=== PATIENT | male | born 1945 | race Caucasian/White ===

== ENCOUNTER 2023-04-07 20:57 | Inpatient (IN) | payer MEDICARE ==
[~2023-04-07 20:57] MED LIST: Iopamidol-370 76% 500 ML MDV (1 ML CHARGE) ONE
[2023-04-07] MEDS ORDERED: Dexamethasone 10 MG/ML VIAL ONE (23:32)
[2023-04-07] MEDS ORDERED: Ondansetron PF 4 MG/2 ML Vial ONE (23:32)
[2023-04-07] MEDS ORDERED: Morphine 4 MG/ML VIAL ONE (23:32)
[2023-04-07 23:52] LABS: #Eosinphils 0.2 thou/uL (0.0-0.7); #Monocytes 0.8 thou/uL (0.11-0.59); #Neutrophils 3.7 thou/uL (1.40-6.50); %Basophils 0.5 % (0.0-1.0); %Eosinophils 3.1 % (0.0-10.0); %Lymphocytes 26.6 % (21.0-51.0); %Monocytes 11.9 % (0.0-10.0); %Neutrophils 57.7 % (42.0-75.0); Hematocrit 33.9 % (42.0-52.0); Hemoglobin 12.4 g/dL (14.0-18.0); Mean Corpuscular HGB CONC 36.6 g/dL (32.0-36.0); Mean Corpuscular Volume 90.2 fl (78.0-98.0); Mean Platelet Volume 9.4 fL (7.4-10.4); Platelet Count 250 10x3/uL (130-400); RBC Distribution Width 12.9 % (11.5-14.5); Red Blood Cell (RBC) Count 3.76 mill/uL (4.70-6.10); White Blood Cell (WBC) Count 6.4 10x3/uL (4.8-10.8)
[2023-04-08] MEDS ORDERED: LORazepam 2 MG/ML SYR.(CARPUJECT) ONE (00:29)
[2023-04-08] MEDS ORDERED: fentaNYL 50 mcg/mL 1 mL Vial ONE (00:29)
[2023-04-08 00:37] LABS: ALT (SGPT) 16 U/L (8-55); AST (SGOT) 29 U/L (5-34); Albumin 3.9 g/dL (3.4-4.8); Alkaline Phosphatase 50 U/L (40-110); Anion Gap 16 mmol/L (10-20); BUN (Urea Nitrogen) 16 mg/dL (8.4-25.7); Bilirubin, Total 0.7 mg/dL (0.2-1.2); Calc. Creatinine Clearance 0 mL/min (70-130); Calcium 9.4 mg/dL (7.8-10.44); Carbon Dioxide 24 mmol/L (23-31); Chloride 91 mmol/L (98-107); Estimated GFR 85; Globulin 2.6 g/dL (2.4-3.5); Glucose 117 mg/dL (83-110); Lipase 9 U/L (8-78); Potassium 3.5 mmol/L (3.5-5.1); Protein, Total 6.5 g/dL (5.8-8.1); Sodium 127 mmol/L (136-145)
[2023-04-08 00:53] LABS: Bacteria/HPF 1+ HPF (None Seen); Bilirubin Negative (Negative); Blood, Urine Negative (Negative); CAUTI Indications for Culture Dysuria,urgency,freq; Clarity Clear (Clear); Glucose, Urine (Dipstick) Normal (Negative); Ketone, Urine Negative (Negative); Leukocyte Negative Leu/uL (Negative); Nitrite Negative (Negative); Protein, Urine (Dipstick) Negative (Neg-Trace); RBC/HPF 0-3 HPF (0-3); Squamous Epithelial None Seen HPF (0-3); Urine Culture Reflex No No; Urobilinogen Normal mg/dL (Less than 2); WBC/HPF 0-3 HPF (0-3)
[2023-04-08 04:50] VITALS: BMI 23.6
[2023-04-08] MEDS ORDERED: Morphine 4 MG/ML VIAL SLOW IVP PRN ×2 (04:53→08:36)
[2023-04-08] MEDS ORDERED: Ondansetron ODT 4 MG TAB SL PRN (05:00)
[2023-04-08] MEDS ORDERED: Ondansetron PF 4 MG/2 ML Vial IVP PRN (05:00)
[2023-04-08] MEDS ORDERED: Bisacodyl 10 MG SUPP PR PRN (05:11)
[2023-04-08] MEDS: HYDROcodone/Acetaminophen 7.5/325 mg Tablet PO PRN (05:46)
[2023-04-08] MEDS: HYDROmorphone 0.5 MG/0.5 ML SYRINGE SLOW IVP PRN (06:51)
[2023-04-08] MEDS ORDERED: OXYCODONE HCL 15 MG PO PRN (09:56)
[2023-04-08] MEDS ORDERED: Fentanyl 100 MCG/2 ML VIAL SLOW IVP PRN (09:59)
[2023-04-08] MEDS: fentaNYL 50 mcg/mL 1 mL Vial SLOW IVP PRN (10:44)
[2023-04-08] MEDS: Famotidine/PF 20 mg/2ml Vial SLOW IVP SCH (10:47)
[2023-04-08] MEDS: Enoxaparin 40 MG (0.4 mL) SYRINGE SC SCH (10:52)
[2023-04-08] MEDS: Sodium Chloride 0.9% 1,000 ML IV SCH (11:44)
[2023-04-08] MEDS: oxyCODONE 5 MG TAB PO PRN (13:09)
[2023-04-08] MEDS: Lorazepam 1 MG TAB PO PRN (14:41)
[2023-04-08] MEDS: Atorvastatin Calcium 20 MG TAB PO SCH (19:49)
[2023-04-08] MEDS: QUEtiapine 25 MG TAB PO SCH (19:49)
[2023-04-08] MEDS: Dutasteride 0.5 MG CAP PO SCH (21:52)
[2023-04-09 05:50] LABS: #Eosinphils 0.3 thou/uL (0.0-0.7); #Monocytes 1.1 thou/uL (0.11-0.59); #Neutrophils 4.8 thou/uL (1.40-6.50); %Basophils 0.3 % (0.0-1.0); %Lymphocytes 34.2 % (21.0-51.0); %Monocytes 11.2 % (0.0-10.0); Hematocrit 36.1 % (42.0-52.0); Hemoglobin 12.6 g/dL (14.0-18.0); Mean Corpuscular HGB CONC 34.9 g/dL (32.0-36.0); Mean Corpuscular Hemoglobin 32.7 pg (27.0-31.0); Mean Corpuscular Volume 93.8 fl (78.0-98.0); Mean Platelet Volume 9.7 fL (7.4-10.4); Platelet Count 262 10x3/uL (130-400); RBC Distribution Width 13.5 % (11.5-14.5); Red Blood Cell (RBC) Count 3.85 mill/uL (4.70-6.10); White Blood Cell (WBC) Count 9.4 10x3/uL (4.8-10.8)
[2023-04-09 06:16] LABS: Anion Gap 14 mmol/L (10-20); BUN (Urea Nitrogen) 14 mg/dL (8.4-25.7); Calc. Creatinine Clearance 78 mL/min (70-130); Calcium 9.7 mg/dL (7.8-10.44); Carbon Dioxide 26 mmol/L (23-31); Chloride 93 mmol/L (98-107); Estimated GFR 89; Glucose 93 mg/dL (83-110); Potassium 4.2 mmol/L (3.5-5.1); Sodium 129 mmol/L (136-145)
[2023-04-09] MEDS: Tamsulosin HCl 0.4 MG CAP PO SCH (07:45)
[2023-04-09] MEDS: FLUoxetine HCl 20 MG CAP PO SCH (07:45)
[2023-04-09] MEDS: Citalopram 20 MG TAB PO SCH (07:45)
[2023-04-09] MEDS: Chlorthalidone 25 MG TAB PO SCH (07:46)
[2023-04-09] MEDS: Polyethylene Glycol 3350 17 GM Packet PO SCH (07:46)
[2023-04-09] MEDS ORDERED: Non-Formulary Item 1 EACH (Esomeprazole Magnesium [Nexium] 40 MG Cap) PO SCH (08:00)
[2023-04-09] MEDS ORDERED: oxyCODONE 5 MG TAB PO SCH (11:00)
[2023-04-09] MEDS: oxyCODONE 5 MG TAB PO PRN (12:08)
[2023-04-09] MEDS: GoLYTELY 4,000 ml Bottle PO SCH (12:09)
[2023-04-09] MEDS: Buprenorphine HCl 2 MG SL TAB SL SCH (20:23)
[2023-04-09] MEDS: Senokot S 8.6-50 MG TAB PO SCH (20:28)
[2023-04-10 04:54] LABS: Anion Gap 12 mmol/L (10-20); BUN (Urea Nitrogen) 11 mg/dL (8.4-25.7); Calc. Creatinine Clearance 86 mL/min (70-130); Calcium 8.9 mg/dL (7.8-10.44); Carbon Dioxide 25 mmol/L (23-31); Chloride 95 mmol/L (98-107); Estimated GFR 91; Glucose 130 mg/dL (83-110); Potassium 3.2 mmol/L (3.5-5.1); Sodium 129 mmol/L (136-145)
[2023-04-10] MEDS: Potassium Chloride 20 MEQ TAB PO SCH (08:13)
[2023-04-10] MEDS: TRULANCE PO SCH (08:15)
[2023-04-10] MEDS: Fioricet 325/50/40 mg Tablet PO SCH (13:05)
[2023-04-10] MEDS: fentaNYL 50 mcg/mL 1 mL Vial SLOW IVP PRN (16:26)
[2023-04-10] MEDS: Fioricet 325/50/40 mg Tablet PO PRN (20:32)
[2023-04-11 06:37] LABS: Anion Gap 11 mmol/L (10-20); BUN (Urea Nitrogen) 9 mg/dL (8.4-25.7); Calc. Creatinine Clearance 91 mL/min (70-130); Calcium 8.7 mg/dL (7.8-10.44); Carbon Dioxide 25 mmol/L (23-31); Chloride 93 mmol/L (98-107); Estimated GFR 93; Glucose 109 mg/dL (83-110); Magnesium 1.6 mg/dL (1.6-2.6); Potassium 3.7 mmol/L (3.5-5.1); Sodium 125 mmol/L (136-145)
[2023-04-11] MEDS: Acetaminophen 500 MG TAB PO SCH (11:58)
[2023-04-11] MEDS: Ketorolac Tromethamine 30 MG (1 mL) VIAL IVP SCH (15:48)
[2023-04-11] MEDS: Buprenorphine HCl 2 MG SL TAB PO SCH (20:14)
[2023-04-11] MEDS: fentaNYL 50 mcg/mL 1 mL Vial SLOW IVP PRN (21:00)
[2023-04-12 07:01] LABS: Anion Gap 12 mmol/L (10-20); BUN (Urea Nitrogen) 10 mg/dL (8.4-25.7); Calc. Creatinine Clearance 89 mL/min (70-130); Calcium 8.7 mg/dL (7.8-10.44); Carbon Dioxide 27 mmol/L (23-31); Chloride 89 mmol/L (98-107); Estimated GFR 92; Glucose 90 mg/dL (83-110); Potassium 3.8 mmol/L (3.5-5.1); Sodium 124 mmol/L (136-145)
[2023-04-12] MEDS: Sodium Chloride 0.9% 500 ML IV SCH (11:26)
[2023-04-12] MEDS: Lidocaine 4% Patch TD SCH (13:47)
[2023-04-12] MEDS: Lidocaine 2% Viscous 10 mL, Alum & Magn 30 mL SSW SCH (17:28)
[2023-04-13] MEDS: Transdermal Patch Removal TOP SCH (02:00)
[2023-04-13 06:04] LABS: #Eosinphils 0.4 thou/uL (0.0-0.7); %Basophils 0.3 % (0.0-1.0); %Eosinophils 5.1 % (0.0-10.0); %Lymphocytes 23.2 % (21.0-51.0); %Monocytes 14.6 % (0.0-10.0); %Neutrophils 56.7 % (42.0-75.0); Hematocrit 32.5 % (42.0-52.0); Hemoglobin 11.8 g/dL (14.0-18.0); Mean Corpuscular HGB CONC 36.3 g/dL (32.0-36.0); Mean Corpuscular Hemoglobin 33.1 pg (27.0-31.0); Mean Corpuscular Volume 91.3 fl (78.0-98.0); Mean Platelet Volume 9.6 fL (7.4-10.4); Platelet Count 278 10x3/uL (130-400); RBC Distribution Width 12.7 % (11.5-14.5); Red Blood Cell (RBC) Count 3.56 mill/uL (4.70-6.10); White Blood Cell (WBC) Count 7.1 10x3/uL (4.8-10.8)
[2023-04-13 06:57] LABS: Anion Gap 11 mmol/L (10-20); BUN (Urea Nitrogen) 11 mg/dL (8.4-25.7); Calc. Creatinine Clearance 92 mL/min (70-130); Calcium 8.9 mg/dL (7.8-10.44); Carbon Dioxide 29 mmol/L (23-31); Chloride 88 mmol/L (98-107); Estimated GFR 93; Glucose 100 mg/dL (83-110); Potassium 3.9 mmol/L (3.5-5.1); Sodium 124 mmol/L (136-145)
[2023-04-13] MEDS: Sodium Chloride 0.9% 1,000 ML IV SCH (09:30)
[2023-04-14 05:02] LABS: #Eosinphils 0.5 thou/uL (0.0-0.7); #Monocytes 0.8 thou/uL (0.11-0.59); %Basophils 0.3 % (0.0-1.0); %Eosinophils 7.3 % (0.0-10.0); %Lymphocytes 19.1 % (21.0-51.0); %Monocytes 11.7 % (0.0-10.0); %Neutrophils 61.3 % (42.0-75.0); Hemoglobin 11.4 g/dL (14.0-18.0); Mean Corpuscular HGB CONC 35.6 g/dL (32.0-36.0); Mean Corpuscular Hemoglobin 33.3 pg (27.0-31.0); Mean Corpuscular Volume 93.6 fl (78.0-98.0); Mean Platelet Volume 9.8 fL (7.4-10.4); Platelet Count 257 10x3/uL (130-400); Red Blood Cell (RBC) Count 3.42 mill/uL (4.70-6.10); White Blood Cell (WBC) Count 6.6 10x3/uL (4.8-10.8)
[2023-04-14 05:09] LABS: Anion Gap 10 mmol/L (10-20); BUN (Urea Nitrogen) 10 mg/dL (8.4-25.7); Calc. Creatinine Clearance 85 mL/min (70-130); Calcium 8.9 mg/dL (7.8-10.44); Carbon Dioxide 26 mmol/L (23-31); Chloride 93 mmol/L (98-107); Estimated GFR 91; Glucose 91 mg/dL (83-110); Potassium 4.6 mmol/L (3.5-5.1); Sodium 124 mmol/L (136-145)
[2023-04-14] MEDS: Sodium Chloride 0.9% 1,000 ML IV SCH (12:36)
[2023-04-15 07:26] LABS: #Eosinphils 0.6 thou/uL (0.0-0.7); #Monocytes 0.8 thou/uL (0.11-0.59); #Neutrophils 3.8 thou/uL (1.40-6.50); %Basophils 0.4 % (0.0-1.0); %Eosinophils 8.9 % (0.0-10.0); %Lymphocytes 24.3 % (21.0-51.0); %Monocytes 11.8 % (0.0-10.0); %Neutrophils 54.5 % (42.0-75.0); Hematocrit 33.7 % (42.0-52.0); Hemoglobin 11.9 g/dL (14.0-18.0); Mean Corpuscular HGB CONC 35.3 g/dL (32.0-36.0); Mean Corpuscular Hemoglobin 33.1 pg (27.0-31.0); Mean Corpuscular Volume 93.9 fl (78.0-98.0); Mean Platelet Volume 9.7 fL (7.4-10.4); Platelet Count 254 10x3/uL (130-400); RBC Distribution Width 13.2 % (11.5-14.5); Red Blood Cell (RBC) Count 3.59 mill/uL (4.70-6.10); White Blood Cell (WBC) Count 7.1 10x3/uL (4.8-10.8)
[2023-04-15 08:09] LABS: Anion Gap 10 mmol/L (10-20); BUN (Urea Nitrogen) 6 mg/dL (8.4-25.7); Calc. Creatinine Clearance 93 mL/min (70-130); Calcium 8.5 mg/dL (7.8-10.44); Carbon Dioxide 23 mmol/L (23-31); Chloride 101 mmol/L (98-107); Estimated GFR 94; Glucose 81 mg/dL (83-110); Potassium 4.4 mmol/L (3.5-5.1); Sodium 130 mmol/L (136-145)
[2023-04-15] MEDS: oxyCODONE 5 MG TAB PO SCH (11:12)
[2023-04-15] MEDS: Bacitracin 1 PK TOP PRN (12:42)
[2023-04-15 13:50] LABS: Creatinine, Urine Less than 20.00 mg/dL (63-166); Sodium, Urine 61 mmol/L (Not Available)
[2023-04-15] MEDS ORDERED: METHYLNALTREXONE BROMIDE 150 MG PO SCH ×2 (15:00)
[2023-04-15] MEDS: Acetaminophen 500 MG TAB PO SCH (15:43)
[2023-04-16 06:34] LABS: Anion Gap 13 mmol/L (10-20); BUN (Urea Nitrogen) 9 mg/dL (8.4-25.7); Calc. Creatinine Clearance 89 mL/min (70-130); Calcium 8.7 mg/dL (7.8-10.44); Carbon Dioxide 25 mmol/L (23-31); Chloride 102 mmol/L (98-107); Estimated GFR 92; Glucose 91 mg/dL (83-110); Potassium 4.1 mmol/L (3.5-5.1); Sodium 136 mmol/L (136-145)
[2023-04-16 07:37] VITALS: BP 146/78; TEMP 98.1
== END 2023-04-16 14:15 | DRG 552 ==
LOC: ERS 20:57 → T4-B 04-08 02:35 → OBSVTOIN 04-09 10:53
PROVIDERS: ADMIT Hospitalist; ATTEND Family Medicine
PROC: 0T9B70Z Drainage of Bladder with Drainage Device, Via Natural or Artificial Opening (ICD-10-PCS; principal; 2023-04-09)
DX: M54.50 Low back pain, unspecified (principal); E87.1 Hypo-osmolality and hyponatremia; R45.851 Suicidal ideations; I10 Essential (primary) hypertension; E78.5 Hyperlipidemia, unspecified; Z88.8 Allergy status to other drugs, medicaments and biological substances; Z79.899 Other long term (current) drug therapy; Z98.890 Other specified postprocedural states; Z90.49 Acquired absence of other specified parts of digestive tract; F32.A Depression, unspecified; Z87.891 Personal history of nicotine dependence; N40.1 Benign prostatic hyperplasia with lower urinary tract symptoms; M25.561 Pain in right knee; K59.00 Constipation, unspecified; F39 Unspecified mood [affective] disorder; K21.9 Gastro-esophageal reflux disease without esophagitis
CPT/HCPCS: 36415; 51702; 51798; 72132; 74177; 80048; 80053; 81001; 82570; 83690; 83735; 83930; 83935; 84300; 85025; 86140; 93005; 93010; 96374; 96375; J0571; J1100; J1170; J1650; J1885; J2060; J2270; J2405; J3010; J7030; J7050; S0028

== ENCOUNTER 2023-10-24 09:19 | Inpatient (IN) | payer MEDICARE ==
[2023-10-24 10:16] LABS: #Basophils 0.03 10x3/uL (0.0-0.2); %Basophils 0.2 % (0.0-1.0); %Eosinophils 1.3 % (0.0-10.0); %Lymphocytes 5.3 % (21.0-51.0); %Monocytes 13.6 % (0.0-10.0); %Neutrophils 79.3 % (42.0-75.0); Hematocrit 32.3 % (42.0-52.0); Hemoglobin 11.3 g/dL (14.0-18.0); Mean Corpuscular Volume 91.5 fL (78.0-98.0); Mean Platelet Volume 9.6 fL (7.4-10.4); Platelet Count 310 10x3/uL (130-400); RBC Distribution Width 15.5 % (11.5-14.5); Red Blood Cell (RBC) Count 3.53 mill/uL (4.70-6.10)
[2023-10-24 10:35] LABS: ALT (SGPT) 18 U/L (8-55); AST (SGOT) 19 U/L (5-34); Albumin 3.3 g/dL (3.4-4.8); Alkaline Phosphatase 56 U/L (40-110); Anion Gap 18 mmol/L (10-20); BUN (Urea Nitrogen) 43 mg/dL (8.4-25.7); Bilirubin, Total 0.4 mg/dL (0.2-1.2); Calc. Creatinine Clearance 0 mL/min (70-130); Calcium 9.3 mg/dL (7.8-10.44); Carbon Dioxide 21 mmol/L (23-31); Chloride 98 mmol/L (98-107); Estimated GFR 47; Globulin 3.9 g/dL (2.4-3.5); Glucose 103 mg/dL (83-110); Protein, Total 7.2 g/dL (5.8-8.1); Sodium 133 mmol/L (136-145)
[2023-10-24 10:57] LABS: INR-International Normal Ratio 1.2; PTT 33.6 sec (22.9-36.1); Prothrombin Time 15.5 sec (12.0-14.7)
[2023-10-24 12:29] LABS: Troponin I 0.036 ng/mL (< 0.028)
[2023-10-24 12:31] LABS: Bilirubin Negative (Negative); Blood, Urine 2+ (Negative); CAUTI Indications for Culture Dysuria,urgency,freq; Clarity Turbid (Clear); Glucose, Urine (Dipstick) Normal (Negative); Ketone, Urine Negative (Negative); Leukocyte 500 Leu/uL (Negative); Nitrite 2+ (Negative); Protein, Urine (Dipstick) 100 mg/dL (Neg-Trace); Specific Gravity, Urine 1.023 (1.002-1.036); Squamous Epithelial 0-3 HPF (0-3); Urobilinogen Normal mg/dL (Less than 2); pH, Urine 8.5 (5.0-9.0)
[2023-10-24 12:40] LABS: Bacteria/HPF 3+ HPF (None Seen); Yeast-Budding 1+ HPF (None Seen); Yeast-Hyphae Rare HPF (None Seen)
[2023-10-24 12:41] LABS: Urine Culture Reflex Yes Yes
[2023-10-24] MEDS ORDERED: Lorazepam 2 MG/ML VIAL ONE (14:20)
[2023-10-24 15:41] LABS: SARS-CoV-2 E Target Positive; SARS-CoV-2 N2 Target Positive; SARS-CoV-2 NAA Rapid Test DETECTED (NotDetected); SARS-CoV-2 RdRP gene Positive
[2023-10-24] MEDS ORDERED: Sodium Chloride 0.9% 100 ML ONE (16:06)
[2023-10-24] MEDS ORDERED: cefTRIAXone (ROCEPHIN) 1 GM VIAL ONE (16:07)
[2023-10-24] MEDS ORDERED: Vancomycin HCl 125 MG Capsule PO SCH ×3 (16:30→23:59)
[2023-10-24] MEDS: cefTRIAXone\\ROCEPHIN 1 GM in Sodium Chloride 0.9% 100 ML IVPB SCH (17:47)
[2023-10-24] MEDS: Lactated Ringer's 1,000 ML IV SCH (17:48)
[2023-10-24] MEDS: Vancomycin HCl 125 MG/5 ML (BATCHED) UDCUP PO SCH (18:09)
[2023-10-24] MEDS: Sodium Chloride 0.9% 1,000 ML IV SCH (18:13)
[2023-10-24] MEDS: Dexmedetomidine In 0.9 % NaCl 100 ML IVPB SCH (19:00)
[2023-10-24] MEDS: Vancomycin HCl 125 MG Capsule PO SCH (19:50)
[2023-10-24] MEDS: Meropenem 1 GM in Sodium Chloride 0.9% 100 ML IVPB SCH (19:51)
[2023-10-24] MEDS: Atorvastatin Calcium 20 MG TAB PO SCH (20:35)
[2023-10-24] MEDS: QUEtiapine 25 MG TAB PO SCH (20:35)
[2023-10-24] MEDS: Dutasteride 0.5 MG CAP PO SCH (20:35)
[2023-10-24] MEDS: Famotidine 20 MG TAB PO SCH (21:15)
[2023-10-24] MEDS: REMDESIVIR 200 MG in Sodium Chloride 0.9% 250 ML 210 ML IV SCH (21:15)
[2023-10-24] MEDS: NOREPINEPHRINE 8 MG/250 ML-D5W 250 ML ONE (21:49)
[2023-10-25 04:18] LABS: #Basophils 0.03 10x3/uL (0.0-0.2); #Eosinophils Less than 0.03 10x3/uL (0.0-0.7); %Basophils 0.2 % (0.0-1.0); %Eosinophils 0.1 % (0.0-10.0); %Lymphocytes 6.9 % (21.0-51.0); %Monocytes 16.7 % (0.0-10.0); %Neutrophils 75.8 % (42.0-75.0); Hematocrit 33.8 % (42.0-52.0); Hemoglobin 11.7 g/dL (14.0-18.0); Mean Corpuscular HGB CONC 34.6 g/dL (32.0-36.0); Mean Corpuscular Hemoglobin 31.3 pg (27.0-31.0); Mean Corpuscular Volume 90.4 fL (78.0-98.0); Mean Platelet Volume 9.9 fL (7.4-10.4); Platelet Count 314 10x3/uL (130-400); RBC Distribution Width 15.7 % (11.5-14.5); Red Blood Cell (RBC) Count 3.74 mill/uL (4.70-6.10)
[2023-10-25] MEDS: Meropenem 1 GM in Sodium Chloride 0.9% 100 ML IVPB SCH ×3 (04:23→21:02)
[2023-10-25 04:31] LABS: ALT (SGPT) 15 U/L (8-55); AST (SGOT) 20 U/L (5-34); Anion Gap 16 mmol/L (10-20); BUN (Urea Nitrogen) 32 mg/dL (8.4-25.7); Calc. Creatinine Clearance 71 mL/min (70-130); Calcium 8.4 mg/dL (7.8-10.44); Carbon Dioxide 16 mmol/L (23-31); Chloride 105 mmol/L (98-107); Estimated GFR 81; Glucose 107 mg/dL (83-110); Potassium 3.6 mmol/L (3.5-5.1); Sodium 133 mmol/L (136-145)
[2023-10-25] MEDS: Ondansetron PF 4 MG/2 ML Vial IVP SCH ×2 (09:15→11:40)
[2023-10-25] MEDS: Sodium Chloride 0.9% 500 ML IV SCH (10:19)
[2023-10-25] MEDS: Enoxaparin 40 MG (0.4 mL) SYRINGE SC SCH (10:19)
[2023-10-25] MEDS: Lactated Ringer's 1,000 ML IV SCH (10:20)
[2023-10-25] MEDS: Ondansetron PF 4 MG/2 ML Vial ONE (11:40)
[2023-10-25] MEDS: Aspirin 81 mg Enteric Coated Tablet PO SCH (13:19)
[2023-10-25] MEDS: Citalopram 20 MG TAB PO SCH (13:19)
[2023-10-25] MEDS: Cholecalciferol 1,000 UNITS (25 MCG) TAB PO SCH (13:19)
[2023-10-25] MEDS: Tamsulosin HCl 0.4 MG CAP PO SCH (13:19)
[2023-10-25] MEDS: Promethazine HCl 12.5 MG in Sodium Chloride 0.9% 50 ML IVPB PRN (18:19)
[2023-10-25] MEDS: REMDESIVIR 100 MG in Sodium Chloride 0.9% 250 ML 230 ML IV SCH (21:02)
[2023-10-25] MEDS: Lorazepam 1 MG TAB PO PRN (22:01)
[2023-10-26] MEDS: Acetaminophen 325 MG TAB PO PRN (00:34)
[2023-10-26 09:27] LABS: Actual Bicarbonate (HCO3v) 17.9 mEq/L (22-28); Base Excess -7.8 mEq/L (-2.0 to +3.0); Calcium, Ionized (venous) 1.07 mmol/L (1.16-1.32); Chloride (VBG) 101 mmol/L (98-106); Hematocrit-VBG 44 % (42.0-52.0); Hemoglobin (Hb) 14.9 g/dL (12.6-17.4); Potassium (VBG) 5.23 mmol/L (3.70-5.30); Sodium 133 mmol/L (133-146); pH (venous) 7.298 (7.32-7.43)
[2023-10-26 09:34] LABS: Hematocrit 41.8 % (42.0-52.0); Hemoglobin 14.6 g/dL (14.0-18.0); Mean Corpuscular HGB CONC 34.9 g/dL (32.0-36.0); Mean Corpuscular Volume 91.7 fL (78.0-98.0); Mean Platelet Volume 10.7 fL (7.4-10.4); Platelet Count 361 10x3/uL (130-400); RBC Distribution Width 16.2 % (11.5-14.5); Red Blood Cell (RBC) Count 4.56 mill/uL (4.70-6.10)
[2023-10-26] MEDS: Hydrocortisone Sod Succ/PF 100 mg/2 ml Vial IVP SCH (09:56)
[2023-10-26] MEDS: Famotidine 20 MG TAB PO SCH (09:57)
[2023-10-26] MEDS: Lorazepam 1 MG TAB PO PRN (09:57)
[2023-10-26 11:12] LABS: Band 46 % (5-11); Burr Cells MODERATE= 6-15 cells HPF (0-1); Lymphocytes 1 % (21-51); Metamyelocyte 2 % (0-0); Monocytes 10 % (0-10); Neutrophil 42 % (42-75); Platelet Adequacy Comment Platelets Normal; Poikilocytosis MODERATE=16-30 cells HPF (0-5); Polychromasia SLIGHT = 2-3 cells HPF (0-2); Schistocytes SLIGHT = 2-5 cells HPF (0-1); Smudge Cells 3.8 %
[2023-10-26 11:33] LABS: Elliptocytes SLIGHT = 2-5 cells HPF (0-1)
[2023-10-26 12:01] LABS: ALT (SGPT) 18 U/L (8-55); AST (SGOT) 35 U/L (5-34); Albumin 2.1 g/dL (3.4-4.8); Alkaline Phosphatase 44 U/L (40-110); Anion Gap 16 mmol/L (10-20); BUN (Urea Nitrogen) 46 mg/dL (8.4-25.7); Bilirubin, Total 0.2 mg/dL (0.2-1.2); Calc. Creatinine Clearance 38 mL/min (70-130); Calcium 8.3 mg/dL (7.8-10.44); Carbon Dioxide 17 mmol/L (23-31); Chloride 105 mmol/L (98-107); Estimated GFR 39; Globulin 3.3 g/dL (2.4-3.5); Glucose 145 mg/dL (83-110); Potassium 4.1 mmol/L (3.5-5.1); Protein, Total 5.4 g/dL (5.8-8.1); Sodium 134 mmol/L (136-145)
[2023-10-26 12:03] LABS: ALT (SGPT) 18 U/L (8-55); AST (SGOT) 35 U/L (5-34)
[2023-10-26] MEDS: Buprenorphine 2mg/Naloxone 0.5mg per 1 FILM SL SCH (12:05)
[2023-10-26] MEDS: Lactated Ringer's 500 ML IV SCH (14:30)
[2023-10-26] MEDS: Midodrine HCl 5 MG TAB PO SCH (17:07)
[2023-10-26] MEDS: QUEtiapine 25 MG TAB PO SCH (20:21)
[2023-10-26] MEDS ORDERED: Escitalopram Oxalate 20 mg Tablet PO SCH (21:00)
[2023-10-26] MEDS ORDERED: Lorazepam 1 MG TAB PO PRN (21:07)
[2023-10-27 04:35] LABS: Hematocrit 38.6 % (42.0-52.0); Hemoglobin 13.2 g/dL (14.0-18.0); Mean Corpuscular HGB CONC 34.2 g/dL (32.0-36.0); Mean Corpuscular Hemoglobin 31.3 pg (27.0-31.0); Mean Corpuscular Volume 91.5 fL (78.0-98.0); Mean Platelet Volume 10.1 fL (7.4-10.4); Platelet Count 389 10x3/uL (130-400); RBC Distribution Width 15.9 % (11.5-14.5); Red Blood Cell (RBC) Count 4.22 mill/uL (4.70-6.10)
[2023-10-27 04:42] LABS: ALT (SGPT) 21 U/L (8-55); AST (SGOT) 47 U/L (5-34); Albumin 1.9 g/dL (3.4-4.8); Alkaline Phosphatase 46 U/L (40-110); Anion Gap 16 mmol/L (10-20); BUN (Urea Nitrogen) 56 mg/dL (8.4-25.7); Bilirubin, Total 0.2 mg/dL (0.2-1.2); Calc. Creatinine Clearance 28 mL/min (70-130); Calcium 8.1 mg/dL (7.8-10.44); Carbon Dioxide 18 mmol/L (23-31); Chloride 102 mmol/L (98-107); Estimated GFR 27; Globulin 3.1 g/dL (2.4-3.5); Glucose 135 mg/dL (83-110); Potassium 4.5 mmol/L (3.5-5.1); Sodium 131 mmol/L (136-145)
[2023-10-27 05:50] LABS: Anisocytosis SLIGHT = 6-15 cells HPF (0-5); Band 21 % (5-11); Burr Cells MODERATE= 6-15 cells HPF (0-1); Lymphocytes 3 % (21-51); Monocytes 7 % (0-10); Neutrophil 69 % (42-75); Platelet Adequacy Comment Platelets Normal; Polychromasia SLIGHT = 2-3 cells HPF (0-2)
[2023-10-27] MEDS: Lorazepam 1 MG TAB PO SCH (08:51)
[2023-10-27] MEDS: Enoxaparin 30 MG (0.3 mL) SYRINGE SC SCH (08:52)
[2023-10-27] MEDS: Hydrocortisone Sod Succ/PF 100 mg/2 ml Vial IVP SCH (08:53)
[2023-10-27] MEDS ORDERED: Famotidine 20 MG TAB PO SCH (09:00)
[2023-10-27] MEDS ORDERED: Sterile Water 10 ML VIAL FS PRN ×2 (09:00→14:43)
[2023-10-27] MEDS: Ziprasidone 20 MG VIAL IM SCH (09:16)
[2023-10-27] MEDS: Sodium Chloride 0.9% 500 ML IV SCH (16:00)
[2023-10-27] MEDS: Meropenem 500 MG in Sodium Chloride 0.9% 100 ML IVPB SCH (18:31)
[2023-10-27 18:42] LABS: INR-International Normal Ratio 1.7; Prothrombin Time 20.2 sec (12.0-14.7)
[2023-10-27 18:52] LABS: D-Dimer Test 17.45 mcg/mL (0.27-0.43)
[2023-10-27] MEDS: Fidaxomicin 200 MG TAB PO SCH (20:49)
[2023-10-28 05:05] LABS: ALT (SGPT) 21 U/L (8-55); AST (SGOT) 39 U/L (5-34); Albumin 1.8 g/dL (3.4-4.8); Alkaline Phosphatase 106 U/L (40-110); Anion Gap 20 mmol/L (10-20); BUN (Urea Nitrogen) 69 mg/dL (8.4-25.7); Bilirubin, Total 0.2 mg/dL (0.2-1.2); Calc. Creatinine Clearance 23 mL/min (70-130); Calcium 8.1 mg/dL (7.8-10.44); Carbon Dioxide 14 mmol/L (23-31); Chloride 100 mmol/L (98-107); Estimated GFR 20; Globulin 2.6 g/dL (2.4-3.5); Glucose 89 mg/dL (83-110); Potassium 4.6 mmol/L (3.5-5.1); Protein, Total 4.4 g/dL (5.8-8.1); Sodium 129 mmol/L (136-145)
[2023-10-28] MEDS: Ziprasidone 20 MG VIAL IM PRN (08:18)
[2023-10-28] MEDS: Famotidine 20 MG TAB PO SCH (09:44)
[2023-10-28] MEDS: Lactated Ringer's 1,000 ML IV SCH (09:50)
[2023-10-28 10:59] LABS: Hematocrit 35.6 % (42.0-52.0); Hemoglobin 12.5 g/dL (14.0-18.0); Mean Corpuscular HGB CONC 35.1 g/dL (32.0-36.0); Mean Corpuscular Hemoglobin 31.2 pg (27.0-31.0); Mean Corpuscular Volume 88.8 fL (78.0-98.0); Mean Platelet Volume 10.2 fL (7.4-10.4); Platelet Count 349 10x3/uL (130-400); RBC Distribution Width 15.9 % (11.5-14.5); Red Blood Cell (RBC) Count 4.01 mill/uL (4.70-6.10)
[2023-10-28 12:17] LABS: Band 20 % (5-11); Burr Cells MARKED = >16 cells HPF (0-1); Lymphocytes 1 % (21-51); Myelocyte 1 % (0-0); Neutrophil 78 % (42-75); Platelet Adequacy Comment Platelets Normal; Polychromasia SLIGHT = 2-3 cells HPF (0-2)
[2023-10-28] MEDS ORDERED: Sodium Chloride 0.9% 500 ML IV SCH (17:30)
[2023-10-28] MEDS: Lactated Ringer's 500 ML IV SCH (18:11)
[2023-10-28] MEDS: Albumin 25% 25 GM (100 mL) BOT IVPB SCH (22:52)
[2023-10-29] MEDS: NOREPINEPHRINE 8 MG/250 ML-D5W 250 ML IVPB SCH (05:02)
[2023-10-29 05:25] LABS: Hematocrit 35.5 % (42.0-52.0); Hemoglobin 12.5 g/dL (14.0-18.0); Mean Corpuscular HGB CONC 35.2 g/dL (32.0-36.0); Mean Corpuscular Hemoglobin 30.9 pg (27.0-31.0); Mean Corpuscular Volume 87.9 fL (78.0-98.0); Mean Platelet Volume 10.5 fL (7.4-10.4); Platelet Count 400 10x3/uL (130-400); RBC Distribution Width 16.1 % (11.5-14.5); Red Blood Cell (RBC) Count 4.04 mill/uL (4.70-6.10)
[2023-10-29 05:39] LABS: ALT (SGPT) 14 U/L (8-55); AST (SGOT) 28 U/L (5-34); Albumin 2.2 g/dL (3.4-4.8); Alkaline Phosphatase 55 U/L (40-110); Anion Gap 17 mmol/L (10-20); BUN (Urea Nitrogen) 89 mg/dL (8.4-25.7); Bilirubin, Total 0.2 mg/dL (0.2-1.2); Calc. Creatinine Clearance 16 mL/min (70-130); Calcium 8.2 mg/dL (7.8-10.44); Carbon Dioxide 18 mmol/L (23-31); Chloride 98 mmol/L (98-107); Estimated GFR 13; Globulin 2.2 g/dL (2.4-3.5); Glucose 104 mg/dL (83-110); Potassium 5.1 mmol/L (3.5-5.1); Protein, Total 4.4 g/dL (5.8-8.1); Sodium 128 mmol/L (136-145)
[2023-10-29 06:17] LABS: Anisocytosis SLIGHT = 6-15 cells HPF (0-5); Band 2 % (5-11); Burr Cells MODERATE= 6-15 cells HPF (0-1); Lymphocytes 1 % (21-51); Monocytes 4 % (0-10); Neutrophil 93 % (42-75); Platelet Adequacy Comment Platelets Normal; Poikilocytosis SLIGHT = 6-15 cells HPF (0-5); Polychromasia SLIGHT = 2-3 cells HPF (0-2); Toxic Granulation MODERATE
[2023-10-29] MEDS: chlorproMAZINE HCl 50 MG/2 ML AMP IM SCH (08:42)
[2023-10-29] MEDS: Midodrine HCl 5 MG TAB PO SCH (08:42)
[2023-10-29] MEDS ORDERED: CRRT- NOTIFY PHARMACY FS PRN (09:15)
[2023-10-29] MEDS ORDERED: Sodium Chloride 0.9% 1,000 ML FS SCH (09:15)
[2023-10-29] MEDS: Heparin 5,000 UNITS/ML VIAL SC SCH (12:17)
[2023-10-29] MEDS: Albumin 25% 25 GM (100 mL) BOT IVPB SCH (12:17)
[2023-10-29 15:22] LABS: HBSAB Concentration Less than 8.00 mIU/mL; HBsAg Index 0.28 S/CO (0-0.99); Hep B Core Total Ab NONREACTIVE (NonReactive); Hep B Core Total Index 0.08 S/CO (0-0.79); Hep B Surf AB NONREACTIVE (NonReactive); Hep B Surf Ag NONREACTIVE S/CO (NonReactive); Hep C IgG Ab NONREACTIVE S/CO (NonReactive); Hep C Index 0.05 S/CO (0-0.79)
[2023-10-30] MEDS: Activase 2 MG VIAL CATH SCH ×2 (04:18→22:04)
[2023-10-30 06:28] LABS: ALT (SGPT) 13 U/L (8-55); AST (SGOT) 46 U/L (5-34); Albumin 2.8 g/dL (3.4-4.8); Alkaline Phosphatase 104 U/L (40-110); Anion Gap 15 mmol/L (10-20); BUN (Urea Nitrogen) 75 mg/dL (8.4-25.7); Bilirubin, Total 0.5 mg/dL (0.2-1.2); Calc. Creatinine Clearance 21 mL/min (70-130); Calcium 8.3 mg/dL (7.8-10.44); Carbon Dioxide 19 mmol/L (23-31); Chloride 103 mmol/L (98-107); Estimated GFR 16; Globulin 1.8 g/dL (2.4-3.5); Glucose 115 mg/dL (83-110); Phosphorus 4.6 mg/dL (2.3-4.7); Potassium 5.9 mmol/L (3.5-5.1); Protein, Total 4.6 g/dL (5.8-8.1); Sodium 131 mmol/L (136-145)
[2023-10-30] MEDS: Albumin 25% 25 GM (100 mL) BOT IVPB SCH (11:33)
[2023-10-30 19:11] LABS: Anion Gap 14 mmol/L (10-20); BUN (Urea Nitrogen) 50 mg/dL (8.4-25.7); Calc. Creatinine Clearance 31 mL/min (70-130); Calcium 8.2 mg/dL (7.8-10.44); Carbon Dioxide 21 mmol/L (23-31); Chloride 102 mmol/L (98-107); Estimated GFR 25; Glucose 115 mg/dL (83-110); Potassium 4.2 mmol/L (3.5-5.1); Sodium 133 mmol/L (136-145)
[2023-10-31 05:47] LABS: Anion Gap 14 mmol/L (10-20); BUN (Urea Nitrogen) 49 mg/dL (8.4-25.7); Calc. Creatinine Clearance 30 mL/min (70-130); Calcium 8.2 mg/dL (7.8-10.44); Carbon Dioxide 21 mmol/L (23-31); Chloride 103 mmol/L (98-107); Estimated GFR 24; Glucose 115 mg/dL (83-110); Phosphorus 3.1 mg/dL (2.3-4.7); Potassium 4.2 mmol/L (3.5-5.1); Sodium 134 mmol/L (136-145)
[2023-10-31] MEDS: Dextrose 5 % And 0.9 % NaCl 1,000 ML IV SCH (08:47)
[2023-10-31] MEDS: Buprenorphine HCl 2 MG SL TAB SL SCH (10:10)
[2023-10-31] MEDS: Albumin 25% 25 GM (100 mL) BOT IVPB SCH (12:18)
[2023-10-31] MEDS: Activase 2 MG VIAL CATH SCH (14:21)
[2023-10-31] MEDS: Sterile Water 10 ML VIAL IVP SCH (14:22)
[2023-10-31 17:13] LABS: Anion Gap 13 mmol/L (10-20); Calc. Creatinine Clearance 31 mL/min (70-130); Calcium 7.9 mg/dL (7.8-10.44); Carbon Dioxide 21 mmol/L (23-31); Chloride 104 mmol/L (98-107); Estimated GFR 26; Glucose 135 mg/dL (83-110); Potassium 4.1 mmol/L (3.5-5.1); Sodium 134 mmol/L (136-145)
[2023-10-31 17:19] LABS: BUN (Urea Nitrogen) 44 mg/dL (8.4-25.7)
[2023-10-31] MEDS: Buprenorphine 8mg/Naloxone 2mg per 1 FILM SL SCH (22:18)
[2023-10-31] MEDS: Buprenorphine 2mg/Naloxone 0.5mg per 1 FILM SL SCH (22:28)
[2023-10-31] MEDS: Albuterol 2.5 MG (3 mL) NEB ONE (23:32)
[2023-11-01 05:03] LABS: Anion Gap 11 mmol/L (10-20); BUN (Urea Nitrogen) 30 mg/dL (8.4-25.7); Calc. Creatinine Clearance 43 mL/min (70-130); Calcium 8.1 mg/dL (7.8-10.44); Carbon Dioxide 24 mmol/L (23-31); Chloride 105 mmol/L (98-107); Estimated GFR 37; Glucose 141 mg/dL (83-110); Magnesium 1.7 mg/dL (1.6-2.6); Phosphorus 1.7 mg/dL (2.3-4.7); Sodium 136 mmol/L (136-145)
[2023-11-01 06:53] LABS: Anisocytosis SLIGHT = 6-15 cells HPF (0-5); Band 6 % (5-11); Elliptocytes SLIGHT = 2-5 cells HPF (0-1); Eosinophils 1 % (0-10); Hypochromia SLIGHT = 6-15 cells HPF (0-5); Lymphocytes 10 % (21-51); Macrocytosis SLIGHT = 6-15 cells HPF (0-5); Monocytes 2 % (0-10); Myelocyte 1 % (0-0); Neutrophil 79 % (42-75); Platelet Adequacy Comment Platelets Decreased; Polychromasia SLIGHT = 2-3 cells HPF (0-2); Promyelocytes 1 % (0-0)
[2023-11-01 07:43] LABS: Hematocrit 24.9 % (42.0-52.0); Hemoglobin 8.7 g/dL (14.0-18.0); Mean Corpuscular HGB CONC 34.4 g/dL (32.0-36.0); Mean Corpuscular Hemoglobin 31.1 pg (27.0-31.0); Mean Corpuscular Volume 90.5 fL (78.0-98.0); Mean Platelet Volume 11.2 fL (7.4-10.4); Platelet Count 114 10x3/uL (130-400); RBC Distribution Width 16.1 % (11.5-14.5); Red Blood Cell (RBC) Count 2.73 mill/uL (4.70-6.10)
[2023-11-01] MEDS ORDERED: Buprenorphine 8mg/Naloxone 2mg per 1 FILM SL SCH (09:00)
[2023-11-01] MEDS: Buprenorphine 8mg/Naloxone 2mg per 1 FILM SL SCH (10:15)
[2023-11-01] MEDS: Ipratropium/Albuterol 3 ML NEB NEB PRN (12:31)
[2023-11-01 18:41] LABS: Anion Gap 12 mmol/L (10-20); BUN (Urea Nitrogen) 21 mg/dL (8.4-25.7); Calc. Creatinine Clearance 58 mL/min (70-130); Calcium 8.2 mg/dL (7.8-10.44); Carbon Dioxide 23 mmol/L (23-31); Chloride 105 mmol/L (98-107); Estimated GFR 50; Glucose 120 mg/dL (83-110); Potassium 4.2 mmol/L (3.5-5.1); Sodium 136 mmol/L (136-145)
[2023-11-02 02:52] LABS: Hematocrit 24.2 % (42.0-52.0); Hemoglobin 8.2 g/dL (14.0-18.0); Mean Corpuscular HGB CONC 33.9 g/dL (32.0-36.0); Mean Corpuscular Hemoglobin 30.9 pg (27.0-31.0); Mean Corpuscular Volume 91.3 fL (78.0-98.0); Mean Platelet Volume 11.5 fL (7.4-10.4); Platelet Count 100 10x3/uL (130-400); RBC Distribution Width 16.3 % (11.5-14.5); Red Blood Cell (RBC) Count 2.65 mill/uL (4.70-6.10)
[2023-11-02 03:18] LABS: Band 10 % (5-11); Eosinophils 2 % (0-10); Lymphocytes 3 % (21-51); Monocytes 6 % (0-10); Myelocyte 3 % (0-0); Neutrophil 76 % (42-75); Platelet Adequacy Comment Platelets Decreased; RBC Morphology Within Normal Limits; Reactive Lymphocytes 1 % (0-10); Smudge Cells 72.1 %
[2023-11-02 03:39] LABS: Anion Gap 10 mmol/L (10-20); BUN (Urea Nitrogen) 20 mg/dL (8.4-25.7); Calc. Creatinine Clearance 55 mL/min (70-130); Carbon Dioxide 24 mmol/L (23-31); Chloride 105 mmol/L (98-107); Estimated GFR 47; Glucose 122 mg/dL (83-110); Magnesium 1.7 mg/dL (1.6-2.6); Phosphorus 1.8 mg/dL (2.3-4.7); Potassium 3.9 mmol/L (3.5-5.1); Sodium 135 mmol/L (136-145)
[2023-11-02] MEDS: PHOS-NAK 1 PKT PACK PO SCH ×2 (11:03→21:55)
[2023-11-02] MEDS: Albumin 25% 25 GM (100 mL) BOT IVPB SCH (12:35)
[2023-11-02 18:50] LABS: Anion Gap 10 mmol/L (10-20); BUN (Urea Nitrogen) 16 mg/dL (8.4-25.7); Calc. Creatinine Clearance 56 mL/min (70-130); Calcium 8.4 mg/dL (7.8-10.44); Carbon Dioxide 26 mmol/L (23-31); Chloride 104 mmol/L (98-107); Estimated GFR 48; Glucose 127 mg/dL (83-110); Phosphorus 1.7 mg/dL (2.3-4.7); Potassium 4.2 mmol/L (3.5-5.1); Sodium 136 mmol/L (136-145)
[2023-11-03 05:01] LABS: Anion Gap 9 mmol/L (10-20); BUN (Urea Nitrogen) 16 mg/dL (8.4-25.7); Calc. Creatinine Clearance 49 mL/min (70-130); Calcium 8.4 mg/dL (7.8-10.44); Carbon Dioxide 26 mmol/L (23-31); Chloride 104 mmol/L (98-107); Estimated GFR 42; Glucose 108 mg/dL (83-110); Magnesium 1.7 mg/dL (1.6-2.6); Phosphorus 1.7 mg/dL (2.3-4.7); Potassium 4.1 mmol/L (3.5-5.1); Sodium 135 mmol/L (136-145)
[2023-11-03 05:03] LABS: Hematocrit 26.1 % (42.0-52.0); Mean Corpuscular HGB CONC 34.5 g/dL (32.0-36.0); Mean Corpuscular Hemoglobin 30.5 pg (27.0-31.0); Mean Corpuscular Volume 88.5 fL (78.0-98.0); Mean Platelet Volume 10.5 fL (7.4-10.4); Platelet Count 111 10x3/uL (130-400); RBC Distribution Width 17.7 % (11.5-14.5); Red Blood Cell (RBC) Count 2.95 mill/uL (4.70-6.10)
[2023-11-03 05:32] VITALS: BMI 30.9
[2023-11-03 06:36] LABS: Band 4 % (5-11); Elliptocytes SLIGHT = 2-5 cells HPF (0-1); Hypochromia SLIGHT = 6-15 cells HPF (0-5); Lymphocytes 8 % (21-51); Macrocytosis SLIGHT = 6-15 cells HPF (0-5); Metamyelocyte 1 % (0-0); Monocytes 7 % (0-10); Myelocyte 1 % (0-0); Neutrophil 77 % (42-75); Platelet Adequacy Comment Platelets Normal; Polychromasia SLIGHT = 2-3 cells HPF (0-2); Reactive Lymphocytes 2 % (0-10); Smudge Cells 9.7 %
[2023-11-03] MEDS: Lorazepam 2 MG/ML VIAL SLOW IVP SCH (08:40)
[2023-11-03] MEDS: PHOS-NAK 1 PKT PACK PO SCH (09:48)
[2023-11-03] MEDS: Albuterol 200 PUFF (6.7GM INHALER) INH PRN (10:54)
[2023-11-03] MEDS ORDERED: EPINEPHrine 1 MG/ML VIAL ONE (11:32)
[2023-11-03] MEDS ORDERED: Bupivacaine PF 0.5% 30 ML VIAL ONE (11:32)
[2023-11-03] MEDS ORDERED: Lidocaine 2% PF 5 ML VIAL ONE (11:32)
[2023-11-03] MEDS ORDERED: Heparin 10,000 UNITS/ 10 ML VIAL ONE (11:34)
[2023-11-03] MEDS ORDERED: PROPOFOL 20 ML ONE (12:22)
[2023-11-03] MEDS ORDERED: Dexamethasone 20 MG/5 ML VIAL ONE (12:47)
[2023-11-03] MEDS ORDERED: CEFAZOLIN 1 GM VIAL ONE (16:32)
[2023-11-03] MEDS: NOREPINEPHRINE 8 MG/250 ML-D5W 250 ML IVPB SCH (23:07)
[2023-11-03] MEDS ORDERED: Electrolyte Replacement Protocol 1 EACH FS SCH (23:19)
[2023-11-04 04:54] LABS: Hemoglobin 8.2 g/dL (14.0-18.0); Mean Corpuscular HGB CONC 34.2 g/dL (32.0-36.0); Mean Corpuscular Volume 87.9 fL (78.0-98.0); Platelet Count 112 10x3/uL (130-400); RBC Distribution Width 17.3 % (11.5-14.5); Red Blood Cell (RBC) Count 2.73 mill/uL (4.70-6.10)
[2023-11-04 05:25] LABS: Anisocytosis SLIGHT = 6-15 cells HPF (0-5); Band 2 % (5-11); Lymphocytes 8 % (21-51); Metamyelocyte 2 % (0-0); Monocytes 3 % (0-10); Neutrophil 85 % (42-75); Platelet Adequacy Comment Platelets Decreased; Smudge Cells 7.1 %
[2023-11-04 05:35] LABS: Anion Gap 11 mmol/L (10-20); BUN (Urea Nitrogen) 25 mg/dL (8.4-25.7); Calc. Creatinine Clearance 36 mL/min (70-130); Carbon Dioxide 25 mmol/L (23-31); Chloride 103 mmol/L (98-107); Estimated GFR 29; Glucose 119 mg/dL (83-110); Magnesium 1.7 mg/dL (1.6-2.6); Potassium 4.2 mmol/L (3.5-5.1); Sodium 135 mmol/L (136-145)
[2023-11-04 05:45] LABS: Phosphorus 2.9 mg/dL (2.3-4.7)
[2023-11-04] MEDS: Magnesium 2 GM/50 ML(in water) 2 GM in Premix 1 BAG IVPB SCH (07:57)
[2023-11-04] MEDS: Folic Acid 1 MG TAB PER TUBE SCH (07:59)
[2023-11-04] MEDS: Thiamine 100 MG TAB PER TUBE SCH (08:00)
[2023-11-04] MEDS: Buprenorphine 2mg/Naloxone 0.5mg per 1 FILM SL SCH (08:34)
[2023-11-04] MEDS ORDERED: Heparin 10,000 UNITS/ 10 ML VIAL ONE (09:36)
[2023-11-04] MEDS: Saccharomyces boulardii 250 MG CAP PO SCH (20:38)
[2023-11-05 04:08] LABS: Hematocrit 28.4 % (42.0-52.0); Hemoglobin 9.8 g/dL (14.0-18.0); Mean Corpuscular HGB CONC 34.5 g/dL (32.0-36.0); Mean Corpuscular Hemoglobin 30.3 pg (27.0-31.0); Mean Corpuscular Volume 87.9 fL (78.0-98.0); Mean Platelet Volume 10.2 fL (7.4-10.4); Platelet Count 174 10x3/uL (130-400); RBC Distribution Width 17.1 % (11.5-14.5); Red Blood Cell (RBC) Count 3.23 mill/uL (4.70-6.10)
[2023-11-05] MEDS: Lactated Ringer's 1,000 ML IV SCH (04:21)
[2023-11-05] MEDS: Pantoprazole 40 MG VIAL IVP SCH ×2 (04:21→21:45)
[2023-11-05 04:53] LABS: INR-International Normal Ratio 1.6; Lactic Acid 2.08 mmol/L (0.5-2.2); PTT 32.5 sec (22.9-36.1); Prothrombin Time 18.7 sec (12.0-14.7)
[2023-11-05 04:58] LABS: Anion Gap 14 mmol/L (10-20); BUN (Urea Nitrogen) 27 mg/dL (8.4-25.7); Calc. Creatinine Clearance 36 mL/min (70-130); Calcium 8.4 mg/dL (7.8-10.44); Carbon Dioxide 27 mmol/L (23-31); Chloride 99 mmol/L (98-107); Estimated GFR 28; Glucose 148 mg/dL (83-110); Potassium 3.5 mmol/L (3.5-5.1); Sodium 136 mmol/L (136-145)
[2023-11-05 06:49] LABS: Anisocytosis SLIGHT = 6-15 cells HPF (0-5); Band 1 % (5-11); Lymphocytes 5 % (21-51); Macrocytosis MODERATE=16-30 cells HPF (0-5); Monocytes 3 % (0-10); Neutrophil 88 % (42-75); Ovalocytes SLIGHT = 2-5 cells HPF (0-1); Platelet Adequacy Comment Platelets Normal; Polychromasia SLIGHT = 2-3 cells HPF (0-2); Reactive Lymphocytes 3 % (0-10)
[2023-11-05] MEDS: Potassium Chloride 20 MEQ TAB PO SCH (08:22)
[2023-11-05] MEDS: Albumin 25% 25 GM (100 mL) BOT IVPB SCH (09:22)
[2023-11-05] MEDS ORDERED: Heparin 10,000 UNITS/ 10 ML VIAL ONE (09:29)
[2023-11-05 11:10] LABS: Potassium 3.7 mmol/L (3.5-5.1)
[2023-11-06 03:52] LABS: #Basophils Less than 0.03 10x3/uL (0.0-0.2); %Basophils 0.1 % (0.0-1.0); %Eosinophils 0.4 % (0.0-10.0); %Lymphocytes 7.5 % (21.0-51.0); %Monocytes 11.9 % (0.0-10.0); %Neutrophils 78.2 % (42.0-75.0); Hematocrit 23.1 % (42.0-52.0); Hemoglobin 7.7 g/dL (14.0-18.0); Mean Corpuscular HGB CONC 33.3 g/dL (32.0-36.0); Mean Corpuscular Hemoglobin 30.8 pg (27.0-31.0); Mean Corpuscular Volume 92.4 fL (78.0-98.0); Platelet Count 155 10x3/uL (130-400); RBC Distribution Width 17.2 % (11.5-14.5)
[2023-11-06 04:12] LABS: Anion Gap 11 mmol/L (10-20); BUN (Urea Nitrogen) 32 mg/dL (8.4-25.7); Calc. Creatinine Clearance 36 mL/min (70-130); Calcium 8.1 mg/dL (7.8-10.44); Carbon Dioxide 31 mmol/L (23-31); Chloride 102 mmol/L (98-107); Estimated GFR 25; Glucose 99 mg/dL (83-110); Potassium 3.5 mmol/L (3.5-5.1); Sodium 140 mmol/L (136-145)
[2023-11-06] MEDS: Midodrine HCl 5 MG TAB PO SCH ×2 (10:28→14:37)
[2023-11-06] MEDS ORDERED: Heparin 10,000 UNITS/ 10 ML VIAL ONE (14:41)
[2023-11-07 06:14] LABS: #Basophils Less than 0.03 10x3/uL (0.0-0.2); %Basophils 0.1 % (0.0-1.0); %Eosinophils 0.5 % (0.0-10.0); %Lymphocytes 8.4 % (21.0-51.0); %Monocytes 12.9 % (0.0-10.0); %Neutrophils 76.8 % (42.0-75.0); Hematocrit 25.3 % (42.0-52.0); Hemoglobin 8.4 g/dL (14.0-18.0); Mean Corpuscular HGB CONC 33.2 g/dL (32.0-36.0); Mean Corpuscular Hemoglobin 30.7 pg (27.0-31.0); Mean Corpuscular Volume 92.3 fL (78.0-98.0); Mean Platelet Volume 10.3 fL (7.4-10.4); Platelet Count 160 10x3/uL (130-400); RBC Distribution Width 17.6 % (11.5-14.5); Red Blood Cell (RBC) Count 2.74 mill/uL (4.70-6.10)
[2023-11-07 06:32] LABS: Anion Gap 12 mmol/L (10-20); BUN (Urea Nitrogen) 25 mg/dL (8.4-25.7); Calc. Creatinine Clearance 48 mL/min (70-130); Calcium 8.2 mg/dL (7.8-10.44); Carbon Dioxide 29 mmol/L (23-31); Chloride 104 mmol/L (98-107); Estimated GFR 36; Glucose 89 mg/dL (83-110); Potassium 3.6 mmol/L (3.5-5.1); Sodium 141 mmol/L (136-145)
[2023-11-07] MEDS ORDERED: Midodrine HCl 5 MG TAB PO SCH (07:15)
[2023-11-07] MEDS ORDERED: Glycerin Adult Supp. (12 ct jar) PR PRN (08:35)
[2023-11-07] MEDS: Albumin 25% 25 GM (100 mL) BOT IVPB SCH (09:20)
[2023-11-07] MEDS: Glycerin Adult Supp. (12 ct jar) PR SCH (11:58)
[2023-11-07] MEDS ORDERED: Heparin 10,000 UNITS/ 10 ML VIAL ONE (14:39)
[2023-11-07] MEDS: Dutasteride 0.5 MG CAP PER TUBE SCH (21:39)
[2023-11-07] MEDS: Atorvastatin Calcium 20 MG TAB PER TUBE SCH (21:40)
[2023-11-07] MEDS: Saccharomyces boulardii 250 MG CAP PER TUBE SCH (21:40)
[2023-11-07] MEDS: QUEtiapine 25 MG TAB PER TUBE SCH (21:40)
[2023-11-07] MEDS: Midodrine HCl 5 MG TAB PER TUBE SCH (21:41)
[2023-11-08 07:53] LABS: #Basophils Less than 0.03 10x3/uL (0.0-0.2); %Basophils 0.2 % (0.0-1.0); %Eosinophils 0.5 % (0.0-10.0); %Lymphocytes 10.8 % (21.0-51.0); %Monocytes 9.4 % (0.0-10.0); %Neutrophils 78.2 % (42.0-75.0); Hematocrit 24.3 % (42.0-52.0); Mean Corpuscular HGB CONC 32.9 g/dL (32.0-36.0); Mean Corpuscular Volume 94.2 fL (78.0-98.0); Mean Platelet Volume 10.4 fL (7.4-10.4); Platelet Count 171 10x3/uL (130-400); RBC Distribution Width 17.4 % (11.5-14.5); Red Blood Cell (RBC) Count 2.58 mill/uL (4.70-6.10)
[2023-11-08 08:08] LABS: Anion Gap 16 mmol/L (10-20); BUN (Urea Nitrogen) 28 mg/dL (8.4-25.7); Calc. Creatinine Clearance 34 mL/min (70-130); Calcium 8.3 mg/dL (7.8-10.44); Carbon Dioxide 26 mmol/L (23-31); Chloride 105 mmol/L (98-107); Estimated GFR 30; Glucose 82 mg/dL (83-110); Potassium 3.5 mmol/L (3.5-5.1); Sodium 143 mmol/L (136-145)
[2023-11-08] MEDS: Potassium Bicarbonate/Cit Ac 20 MEQ TAB PER TUBE SCH (08:35)
[2023-11-08] MEDS: Aspirin Chewable 81 MG TAB PER TUBE SCH (08:36)
[2023-11-08] MEDS: Citalopram 20 MG TAB PER TUBE SCH (08:37)
[2023-11-08] MEDS: Acetaminophen 325 MG TAB PER TUBE PRN (15:21)
[2023-11-08] MEDS: Bisacodyl 10 MG SUPP PR PRN (17:34)
[2023-11-09 04:55] LABS: #Basophils Less than 0.03 10x3/uL (0.0-0.2); %Basophils 0.2 % (0.0-1.0); %Eosinophils 1.1 % (0.0-10.0); %Lymphocytes 12.9 % (21.0-51.0); %Monocytes 10.7 % (0.0-10.0); %Neutrophils 74.1 % (42.0-75.0); Hematocrit 23.9 % (42.0-52.0); Hemoglobin 7.8 g/dL (14.0-18.0); Mean Corpuscular HGB CONC 32.6 g/dL (32.0-36.0); Mean Corpuscular Hemoglobin 30.6 pg (27.0-31.0); Mean Corpuscular Volume 93.7 fL (78.0-98.0); Mean Platelet Volume 10.7 fL (7.4-10.4); Platelet Count 183 10x3/uL (130-400); Red Blood Cell (RBC) Count 2.55 mill/uL (4.70-6.10)
[2023-11-09 05:05] LABS: Anion Gap 11 mmol/L (10-20); BUN (Urea Nitrogen) 33 mg/dL (8.4-25.7); Calc. Creatinine Clearance 35 mL/min (70-130); Calcium 8.4 mg/dL (7.8-10.44); Carbon Dioxide 27 mmol/L (23-31); Chloride 107 mmol/L (98-107); Estimated GFR 31; Glucose 87 mg/dL (83-110); Potassium 3.6 mmol/L (3.5-5.1); Sodium 141 mmol/L (136-145)
[2023-11-09] MEDS: Lorazepam 2 MG/ML VIAL SLOW IVP SCH (10:01)
[2023-11-10 04:37] LABS: #Basophils Less than 0.03 10x3/uL (0.0-0.2); %Basophils 0.2 % (0.0-1.0); %Eosinophils 0.8 % (0.0-10.0); %Lymphocytes 13.3 % (21.0-51.0); %Monocytes 6.4 % (0.0-10.0); %Neutrophils 78.7 % (42.0-75.0); Hematocrit 25.5 % (42.0-52.0); Hemoglobin 8.2 g/dL (14.0-18.0); Mean Corpuscular HGB CONC 32.2 g/dL (32.0-36.0); Mean Corpuscular Hemoglobin 30.4 pg (27.0-31.0); Mean Corpuscular Volume 94.4 fL (78.0-98.0); Mean Platelet Volume 10.1 fL (7.4-10.4); Platelet Count 224 10x3/uL (130-400); RBC Distribution Width 17.1 % (11.5-14.5)
[2023-11-10 04:51] LABS: Anion Gap 14 mmol/L (10-20); BUN (Urea Nitrogen) 38 mg/dL (8.4-25.7); Calc. Creatinine Clearance 35 mL/min (70-130); Calcium 8.7 mg/dL (7.8-10.44); Carbon Dioxide 26 mmol/L (23-31); Chloride 107 mmol/L (98-107); Estimated GFR 32; Glucose 96 mg/dL (83-110); Potassium 3.6 mmol/L (3.5-5.1); Sodium 143 mmol/L (136-145)
[2023-11-10] MEDS: Polyethylene Glycol 3350 17 GM Packet PER TUBE SCH (11:48)
[2023-11-11 03:57] LABS: #Basophils Less than 0.03 10x3/uL (0.0-0.2); %Basophils 0.2 % (0.0-1.0); %Eosinophils 1.6 % (0.0-10.0); %Monocytes 9.7 % (0.0-10.0); %Neutrophils 72.9 % (42.0-75.0); Hemoglobin 7.3 g/dL (14.0-18.0); Mean Corpuscular HGB CONC 33.2 g/dL (32.0-36.0); Mean Corpuscular Hemoglobin 30.8 pg (27.0-31.0); Mean Corpuscular Volume 92.8 fL (78.0-98.0); Mean Platelet Volume 10.5 fL (7.4-10.4); Platelet Count 228 10x3/uL (130-400); RBC Distribution Width 16.4 % (11.5-14.5); Red Blood Cell (RBC) Count 2.37 mill/uL (4.70-6.10)
[2023-11-11 04:12] LABS: Anion Gap 12 mmol/L (10-20); BUN (Urea Nitrogen) 41 mg/dL (8.4-25.7); Calc. Creatinine Clearance 38 mL/min (70-130); Calcium 8.4 mg/dL (7.8-10.44); Carbon Dioxide 27 mmol/L (23-31); Chloride 106 mmol/L (98-107); Estimated GFR 35; Glucose 107 mg/dL (83-110); Potassium 3.3 mmol/L (3.5-5.1); Sodium 142 mmol/L (136-145)
[2023-11-11] MEDS: Potassium Chloride 20 MEQ in Premix 1 BAG IVPB SCH (06:48)
[2023-11-11] MEDS: Polyethylene Glycol 3350 17 GM Packet PER TUBE SCH (09:06)
[2023-11-11 13:53] LABS: Potassium 3.6 mmol/L (3.5-5.1)
[2023-11-11 17:07] LABS: Bacteria/HPF 4+ HPF (None Seen); Bilirubin Negative (Negative); Blood, Urine 2+ (Negative); CAUTI Indications for Culture Alt mental st,lethar; Clarity Turbid (Clear); Glucose, Urine (Dipstick) Normal (Negative); Ketone, Urine Negative (Negative); Leukocyte 500 Leu/uL (Negative); Nitrite Negative (Negative); Protein, Urine (Dipstick) 70 mg/dL (Neg-Trace); Squamous Epithelial 0-3 HPF (0-3); Urobilinogen Normal mg/dL (Less than 2); WBC/HPF Greater than 50 HPF (0-3)
[2023-11-11 17:12] LABS: Urine Culture Reflex Yes Yes
[2023-11-11] MEDS: EPOETIN ALFA-EPBX (ESRD) 10,000 UNITS/ML VIAL SC SCH (18:25)
[2023-11-12 04:13] LABS: #Basophils 0.03 10x3/uL (0.0-0.2); %Basophils 0.4 % (0.0-1.0); %Eosinophils 1.4 % (0.0-10.0); %Lymphocytes 15.2 % (21.0-51.0); %Monocytes 9.1 % (0.0-10.0); %Neutrophils 73.3 % (42.0-75.0); Hematocrit 22.7 % (42.0-52.0); Hemoglobin 7.2 g/dL (14.0-18.0); Mean Corpuscular HGB CONC 31.7 g/dL (32.0-36.0); Mean Corpuscular Hemoglobin 30.1 pg (27.0-31.0); Platelet Count 225 10x3/uL (130-400); RBC Distribution Width 16.6 % (11.5-14.5); Red Blood Cell (RBC) Count 2.39 mill/uL (4.70-6.10)
[2023-11-12 04:20] LABS: Anion Gap 11 mmol/L (10-20); BUN (Urea Nitrogen) 43 mg/dL (8.4-25.7); Calc. Creatinine Clearance 45 mL/min (70-130); Calcium 8.4 mg/dL (7.8-10.44); Carbon Dioxide 27 mmol/L (23-31); Chloride 108 mmol/L (98-107); Estimated GFR 42; Glucose 96 mg/dL (83-110); Potassium 3.5 mmol/L (3.5-5.1); Sodium 142 mmol/L (136-145)
[2023-11-12] MEDS ORDERED: CEFAZOLIN 2 GM VIAL ONE (10:46)
[2023-11-12] MEDS ORDERED: Sodium Chloride 0.9% 100 ML ONE (10:47)
[2023-11-12] MEDS ORDERED: Rocuronium Bromide 10 MG/ML (10ML VIAL) ONE (10:52)
[2023-11-12] MEDS ORDERED: fentaNYL 50 mcg/mL 1 mL Vial ONE (10:52)
[2023-11-12] MEDS ORDERED: PROPOFOL 20 ML ONE (10:52)
[2023-11-12] MEDS ORDERED: SUCCINYLCHOLINE/SOD CL,ISO/PF 200 MG/10 ML SYRINGE FS ONE (11:15)
[2023-11-12] MEDS: Potassium Chloride 20 MEQ TAB PO SCH (14:50)
[2023-11-12] MEDS: Morphine 2 MG/ML VIAL SLOW IVP SCH (21:05)
[2023-11-13 06:11] LABS: #Basophils Less than 0.03 10x3/uL (0.0-0.2); %Basophils 0.2 % (0.0-1.0); %Eosinophils 0.6 % (0.0-10.0); %Lymphocytes 12.6 % (21.0-51.0); %Monocytes 7.6 % (0.0-10.0); %Neutrophils 78.6 % (42.0-75.0); Hematocrit 22.2 % (42.0-52.0); Hemoglobin 7.2 g/dL (14.0-18.0); Mean Corpuscular HGB CONC 32.4 g/dL (32.0-36.0); Mean Corpuscular Hemoglobin 29.9 pg (27.0-31.0); Mean Corpuscular Volume 92.1 fL (78.0-98.0); Mean Platelet Volume 10.6 fL (7.4-10.4); Platelet Count 250 10x3/uL (130-400); RBC Distribution Width 16.3 % (11.5-14.5); Red Blood Cell (RBC) Count 2.41 mill/uL (4.70-6.10)
[2023-11-13 06:30] LABS: Anion Gap 11 mmol/L (10-20); BUN (Urea Nitrogen) 39 mg/dL (8.4-25.7); Calc. Creatinine Clearance 47 mL/min (70-130); Calcium 8.6 mg/dL (7.8-10.44); Carbon Dioxide 26 mmol/L (23-31); Chloride 110 mmol/L (98-107); Estimated GFR 44; Glucose 85 mg/dL (83-110); Potassium 3.6 mmol/L (3.5-5.1); Sodium 143 mmol/L (136-145)
[2023-11-13] MEDS: Amlodipine 5 MG TAB PO SCH (09:29)
[2023-11-13] MEDS: Lansoprazole 30 MG/10 ML UDCUP PER TUBE SCH (09:30)
[2023-11-13 13:47] VITALS: BMI 26.6
[2023-11-14 06:14] LABS: #Basophils Less than 0.03 10x3/uL (0.0-0.2); %Basophils 0.3 % (0.0-1.0); %Eosinophils 3.2 % (0.0-10.0); %Lymphocytes 16.4 % (21.0-51.0); %Neutrophils 71.7 % (42.0-75.0); Hematocrit 22.3 % (42.0-52.0); Hemoglobin 7.1 g/dL (14.0-18.0); Mean Corpuscular HGB CONC 31.8 g/dL (32.0-36.0); Mean Corpuscular Hemoglobin 29.6 pg (27.0-31.0); Mean Corpuscular Volume 92.9 fL (78.0-98.0); Mean Platelet Volume 10.3 fL (7.4-10.4); Platelet Count 248 10x3/uL (130-400); RBC Distribution Width 16.1 % (11.5-14.5)
[2023-11-14 06:51] LABS: Anion Gap 10 mmol/L (10-20); BUN (Urea Nitrogen) 35 mg/dL (8.4-25.7); Calc. Creatinine Clearance 54 mL/min (70-130); Calcium 8.3 mg/dL (7.8-10.44); Carbon Dioxide 28 mmol/L (23-31); Chloride 107 mmol/L (98-107); Estimated GFR 56; Glucose 105 mg/dL (83-110); Potassium 3.1 mmol/L (3.5-5.1); Sodium 142 mmol/L (136-145)
[2023-11-14] MEDS: Potassium Chloride 20 MEQ in Premix 1 BAG IVPB SCH (08:58)
[2023-11-14] MEDS ORDERED: Bupivacaine 0.25% HCL 30 ML VIAL ONE (12:23)
[2023-11-14] MEDS ORDERED: EPINEPHrine 1 MG/ML VIAL ONE (12:23)
[2023-11-14] MEDS ORDERED: fentaNYL 50 mcg/mL 1 mL Vial ONE (12:32)
[2023-11-14] MEDS ORDERED: Ondansetron PF 4 MG/2 ML Vial ONE (12:32)
[2023-11-14] MEDS ORDERED: Lidocaine 2% PF 5 ML VIAL ONE (12:32)
[2023-11-14] MEDS ORDERED: Dexmedetomidine 200 MCG/2 ML VIAL ONE (12:32)
[2023-11-14] MEDS ORDERED: PROPOFOL 20 ML ONE (12:32)
[2023-11-14] MEDS ORDERED: Famotidine/PF 20 mg/2ml Vial ONE (12:33)
[2023-11-14] MEDS: Electrolyte Replacement Protocol 1 EACH FS ONE (14:14)
[2023-11-14 22:06] VITALS: BP 134/91
[2023-11-15] MEDS: Haloperidol Lactate 5 MG/ML VIAL IM SCH (02:08)
[2023-11-15 03:55] LABS: #Basophils Less than 0.03 10x3/uL (0.0-0.2); %Basophils 0.3 % (0.0-1.0); %Eosinophils 4.2 % (0.0-10.0); %Lymphocytes 16.2 % (21.0-51.0); %Monocytes 8.5 % (0.0-10.0); %Neutrophils 70.2 % (42.0-75.0); Hematocrit 21.8 % (42.0-52.0); Hemoglobin 6.8 g/dL (14.0-18.0); Mean Corpuscular HGB CONC 31.2 g/dL (32.0-36.0); Mean Corpuscular Hemoglobin 30.1 pg (27.0-31.0); Mean Corpuscular Volume 96.5 fL (78.0-98.0); Mean Platelet Volume 10.5 fL (7.4-10.4); Platelet Count 240 10x3/uL (130-400); RBC Distribution Width 16.2 % (11.5-14.5); Red Blood Cell (RBC) Count 2.26 mill/uL (4.70-6.10)
[2023-11-15 04:14] LABS: Anion Gap 10 mmol/L (10-20); BUN (Urea Nitrogen) 33 mg/dL (8.4-25.7); Calc. Creatinine Clearance 58 mL/min (70-130); Calcium 8.2 mg/dL (7.8-10.44); Carbon Dioxide 27 mmol/L (23-31); Chloride 107 mmol/L (98-107); Estimated GFR 60; Glucose 118 mg/dL (83-110); Potassium 3.7 mmol/L (3.5-5.1); Sodium 140 mmol/L (136-145)
[2023-11-15 18:31] LABS: Hematocrit 23.9 % (42.0-52.0); Hemoglobin 7.8 g/dL (14.0-18.0); Platelet Count 251 10x3/uL (130-400)
[2023-11-16 06:12] LABS: #Basophils Less than 0.03 10x3/uL (0.0-0.2); %Basophils 0.2 % (0.0-1.0); %Eosinophils 6.6 % (0.0-10.0); %Monocytes 9.5 % (0.0-10.0); %Neutrophils 62.4 % (42.0-75.0); Hematocrit 25.5 % (42.0-52.0); Hemoglobin 8.2 g/dL (14.0-18.0); Mean Corpuscular HGB CONC 32.2 g/dL (32.0-36.0); Mean Corpuscular Hemoglobin 29.9 pg (27.0-31.0); Mean Corpuscular Volume 93.1 fL (78.0-98.0); Mean Platelet Volume 10.5 fL (7.4-10.4); Platelet Count 280 10x3/uL (130-400); RBC Distribution Width 16.8 % (11.5-14.5); Red Blood Cell (RBC) Count 2.74 mill/uL (4.70-6.10)
[2023-11-16 06:28] LABS: Anion Gap 14 mmol/L (10-20); BUN (Urea Nitrogen) 31 mg/dL (8.4-25.7); Calc. Creatinine Clearance 62 mL/min (70-130); Calcium 8.2 mg/dL (7.8-10.44); Carbon Dioxide 26 mmol/L (23-31); Chloride 106 mmol/L (98-107); Estimated GFR 64; Glucose 105 mg/dL (83-110); Potassium 3.9 mmol/L (3.5-5.1); Sodium 142 mmol/L (136-145)
[2023-11-16 07:59] VITALS: TEMP 98.6
== END 2023-11-16 14:14 | DRG 871 ==
LOC: ERS 09:19 → INTOOBSV 14:45 → SURG A 14:45 → CCU 17:40 → OBSVTOIN 10-26 13:20 → IMCU/EMU 11-09 22:39
PROVIDERS: ADMIT Internal Medicine; ATTEND Internal Medicine
PROC: 3E03329 Introduction of Other Anti-infective into Peripheral Vein, Percutaneous Approach (ICD-10-PCS; 2023-10-26)
PROC: XW033E5 Introduction of Remdesivir Anti-infective into Peripheral Vein, Percutaneous Approach, New Technology Group 5 (ICD-10-PCS; 2023-10-26)
PROC: 3E033XZ Introduction of Vasopressor into Peripheral Vein, Percutaneous Approach (ICD-10-PCS; 2023-10-26)
PROC: 02HV33Z Insertion of Infusion Device into Superior Vena Cava, Percutaneous Approach (ICD-10-PCS; principal; 2023-10-29)
PROC: 30233J1 Transfusion of Nonautologous Serum Albumin into Peripheral Vein, Percutaneous Approach (ICD-10-PCS; 2023-10-29)
PROC: 5A09357 Assistance with Respiratory Ventilation, Less than 24 Consecutive Hours, Continuous Positive Airway Pressure (ICD-10-PCS; 2023-10-29)
PROC: 5A1D90Z Performance of Urinary Filtration, Continuous, Greater than 18 hours Per Day (ICD-10-PCS; 2023-10-29)
PROC: 06HM33Z Insertion of Infusion Device into Right Femoral Vein, Percutaneous Approach (ICD-10-PCS; 2023-10-31)
PROC: 30233N1 Transfusion of Nonautologous Red Blood Cells into Peripheral Vein, Percutaneous Approach (ICD-10-PCS; 2023-11-02)
PROC: 0JH63XZ Insertion of Tunneled Vascular Access Device into Chest Subcutaneous Tissue and Fascia, Percutaneous Approach (ICD-10-PCS; 2023-11-03)
PROC: 02HV33Z Insertion of Infusion Device into Superior Vena Cava, Percutaneous Approach (ICD-10-PCS; 2023-11-03)
PROC: B5181ZA Fluoroscopy of Superior Vena Cava using Low Osmolar Contrast, Guidance (ICD-10-PCS; 2023-11-03)
PROC: 5A1D70Z Performance of Urinary Filtration, Intermittent, Less than 6 Hours Per Day (ICD-10-PCS; 2023-11-04)
PROC: 5A1D70Z Performance of Urinary Filtration, Intermittent, Less than 6 Hours Per Day (ICD-10-PCS; 2023-11-05)
PROC: 5A1D70Z Performance of Urinary Filtration, Intermittent, Less than 6 Hours Per Day (ICD-10-PCS; 2023-11-06)
PROC: 5A1D70Z Performance of Urinary Filtration, Intermittent, Less than 6 Hours Per Day (ICD-10-PCS; 2023-11-07)
PROC: 0DH64UZ Insertion of Feeding Device into Stomach, Percutaneous Endoscopic Approach (ICD-10-PCS; 2023-11-12)
PROC: 0JPT3XZ Removal of Tunneled Vascular Access Device from Trunk Subcutaneous Tissue and Fascia, Percutaneous Approach (ICD-10-PCS; 2023-11-14)
PROC: 06PYX3Z Removal of Infusion Device from Lower Vein, External Approach (ICD-10-PCS; 2023-11-14)
DX: A41.50 Gram-negative sepsis, unspecified (principal); G93.41 Metabolic encephalopathy; U07.1 COVID-19; R57.1 Hypovolemic shock; J12.82 Pneumonia due to coronavirus disease 2019; N17.0 Acute kidney failure with tubular necrosis; R65.21 Severe sepsis with septic shock; N18.6 End stage renal disease; T83.511A Infection and inflammatory reaction due to indwelling urethral catheter, initial encounter; N13.8 Other obstructive and reflux uropathy; E87.1 Hypo-osmolality and hyponatremia; E87.20 Acidosis, unspecified; A04.71 Enterocolitis due to Clostridium difficile, recurrent; K56.7 Ileus, unspecified; N39.0 Urinary tract infection, site not specified; I12.0 Hypertensive chronic kidney disease with stage 5 chronic kidney disease or end stage renal disease; I25.10 Atherosclerotic heart disease of native coronary artery without angina pectoris; E78.5 Hyperlipidemia, unspecified; G89.29 Other chronic pain; M54.9 Dorsalgia, unspecified; N40.1 Benign prostatic hyperplasia with lower urinary tract symptoms; Z88.1 Allergy status to other antibiotic agents; Z88.8 Allergy status to other drugs, medicaments and biological substances; Z79.899 Other long term (current) drug therapy; Z79.82 Long term (current) use of aspirin; Z98.890 Other specified postprocedural states; Z95.1 Presence of aortocoronary bypass graft; D63.1 Anemia in chronic kidney disease; R33.8 Other retention of urine; Z51.5 Encounter for palliative care; R13.12 Dysphagia, oropharyngeal phase; E88.09 Other disorders of plasma-protein metabolism, not elsewhere classified; K59.00 Constipation, unspecified; E55.9 Vitamin D deficiency, unspecified; F03.90 Unspecified dementia, unspecified severity, without behavioral disturbance, psychotic disturbance, mood disturbance, and anxiety
CPT/HCPCS: 36415; 36416; 36430; 70450; 71045; 74018; 76770; 80048; 80053; 81001; 82040; 82306; 82805; 83605; 83615; 83735; 83970; 84100; 84134; 84145; 84450; 84460; 84484; 85025; 85379; 85610; 85730; 86141; 86704; 86706; 86803; 86850; 86900; 86901; 87040; 87077; 87086; 87186; 87324; 87340; 87449; 90935; 90945; 93005; 93970; 94640; 94660; 94760; 96361; 96365; 96366; 96368; 96372; 96374; 96375; 96376; 97139; A6258; B4087; C1752; C1769; G0257; G0378; J0171; J0248; J0571; J0572; J0665; J0690; J0696; J1100; J1630; J1642; J1644; J1650; J1720; J2001; J2060; J2185; J2272; J2405; J2470; J2550; J2704; J2997; J3010; J3230; J3475; J3480; J3486; J3490; J7030; J7042; J7050; J7120; J7611; J7620; P9016; P9047; U0002

== ENCOUNTER 2023-12-04 09:01 | Observation (INO) | payer MEDICARE ==
[2023-12-04 09:32] LABS: #Basophils Less than 0.03 10x3/uL (0.0-0.2); %Basophils 0.1 % (0.0-1.0); %Eosinophils 2.1 % (0.0-10.0); %Lymphocytes 8.6 % (21.0-51.0); %Monocytes 10.9 % (0.0-10.0); Hematocrit 27.5 % (42.0-52.0); Mean Corpuscular HGB CONC 32.7 g/dL (32.0-36.0); Mean Corpuscular Hemoglobin 30.9 pg (27.0-31.0); Mean Corpuscular Volume 94.5 fL (78.0-98.0); Mean Platelet Volume 10.3 fL (7.4-10.4); Platelet Count 174 10x3/uL (130-400); RBC Distribution Width 16.2 % (11.5-14.5); Red Blood Cell (RBC) Count 2.91 mill/uL (4.70-6.10)
[2023-12-04 09:56] LABS: INR-International Normal Ratio 1.2; PTT 36.4 sec (22.9-36.1); Prothrombin Time 14.9 sec (12.0-14.7)
[2023-12-04 10:08] LABS: ALT (SGPT) 7 U/L (8-55); AST (SGOT) 13 U/L (5-34); Albumin 3.4 g/dL (3.4-4.8); Alkaline Phosphatase 66 U/L (40-110); Anion Gap 13 mmol/L (10-20); BUN (Urea Nitrogen) 10 mg/dL (8.4-25.7); Bilirubin, Total 0.5 mg/dL (0.2-1.2); Calc. Creatinine Clearance 0 mL/min (70-130); Calcium 9.7 mg/dL (7.8-10.44); Carbon Dioxide 27 mmol/L (23-31); Chloride 102 mmol/L (98-107); Estimated GFR 87; Globulin 3.5 g/dL (2.4-3.5); Glucose 80 mg/dL (83-110); Potassium 3.8 mmol/L (3.5-5.1); Protein, Total 6.9 g/dL (5.8-8.1); Sodium 138 mmol/L (136-145)
[2023-12-04] MEDS ORDERED: Lorazepam 2 MG/ML VIAL ONE (10:35)
[2023-12-04 10:39] LABS: Troponin I Less than 0.010 ng/mL (< 0.028)
[2023-12-04 10:47] LABS: Bilirubin Negative (Negative); Blood, Urine 3+ (Negative); CAUTI Indications for Culture Alt mental st,lethar; Clarity Extra Turbid (Clear); Glucose, Urine (Dipstick) Normal (Negative); Ketone, Urine Negative (Negative); Leukocyte 500 Leu/uL (Negative); Nitrite Negative (Negative); Protein, Urine (Dipstick) 70 mg/dL (Neg-Trace); RBC/HPF Greater than 50 HPF (0-3); Specific Gravity, Urine 1.004 (1.002-1.036); Squamous Epithelial 0-3 HPF (0-3); Urobilinogen Normal mg/dL (Less than 2); WBC/HPF Greater than 50 HPF (0-3)
[2023-12-04 10:48] LABS: Bacteria/HPF 1+ HPF (None Seen)
[2023-12-04 10:49] LABS: Urine Culture Reflex Yes Yes
[2023-12-04] MEDS ORDERED: Meropenem 1 GM in Sodium Chloride 0.9% 100 ML IVPB SCH ×2 (12:30→14:00)
[2023-12-04] MEDS ORDERED: Vancomycin HCl 125 MG Capsule PO SCH (13:15)
[2023-12-04 14:24] VITALS: BMI 22.3
[2023-12-04] MEDS: FLU (Fluad Triv) TS24-25 (65UP)/MF59C/PF 45 MCG/0.5 ML Syringe IM ONE (15:46)
[2023-12-04] MEDS: Lorazepam 1 MG TAB PO PRN (15:49)
[2023-12-04] MEDS: Escitalopram Oxalate 20 mg Tablet PO SCH (19:57)
[2023-12-04] MEDS: QUEtiapine 25 MG TAB PO SCH (19:57)
[2023-12-04] MEDS: Amlodipine 5 MG TAB PO SCH (19:57)
[2023-12-04] MEDS: Fosfomycin 3 GM/Packet PO SCH (19:58)
[2023-12-04] MEDS: Dutasteride 0.5 MG CAP PO SCH (20:01)
[2023-12-05 05:57] VITALS: TEMP 98.1
[2023-12-05 08:31] VITALS: BP 148/80
[2023-12-05] MEDS: Tamsulosin HCl 0.4 MG CAP PO SCH (10:00)
[2023-12-05] MEDS: Aspirin 81 mg Enteric Coated Tablet PO SCH (10:00)
== END 2023-12-05 12:13 ==
LOC: ERS 09:01 → T4-B 12:37
PROVIDERS: ADMIT Internal Medicine; ATTEND Internal Medicine
DX: G93.41 Metabolic encephalopathy (principal); I10 Essential (primary) hypertension; I25.10 Atherosclerotic heart disease of native coronary artery without angina pectoris; E78.5 Hyperlipidemia, unspecified; F41.9 Anxiety disorder, unspecified; F32.A Depression, unspecified; N39.0 Urinary tract infection, site not specified; N40.1 Benign prostatic hyperplasia with lower urinary tract symptoms; R33.9 Retention of urine, unspecified; Z95.1 Presence of aortocoronary bypass graft; Z96.82 Presence of neurostimulator; Z88.8 Allergy status to other drugs, medicaments and biological substances; Z88.1 Allergy status to other antibiotic agents; Z79.899 Other long term (current) drug therapy
CPT/HCPCS: 51702; 71045; 80053; 81001; 82962; 83605; 84484; 85025; 85610; 85730; 87040; 87077; 87086; 87186; 87428; 93005; 94760; 96374; 99285; G0378 ×2; J2060; 36416; J2185

== ENCOUNTER 2023-12-21 13:52 | Inpatient (IN) | payer MEDICARE ==
[2023-12-21 16:18] LABS: Hematocrit 31.8 % (42.0-52.0); Hemoglobin 9.8 g/dL (14.0-18.0); Mean Corpuscular HGB CONC 30.8 g/dL (32.0-36.0); Mean Corpuscular Hemoglobin 30.2 pg (27.0-31.0); Mean Corpuscular Volume 97.8 fL (78.0-98.0); Mean Platelet Volume 10.4 fL (7.4-10.4); Platelet Count 305 10x3/uL (130-400); RBC Distribution Width 15.9 % (11.5-14.5); Red Blood Cell (RBC) Count 3.25 mill/uL (4.70-6.10)
[2023-12-21 16:41] LABS: Troponin I 0.014 ng/mL (< 0.028)
[2023-12-21 16:50] LABS: ALT (SGPT) 10 U/L (8-55); AST (SGOT) 15 U/L (5-34); Albumin 2.7 g/dL (3.4-4.8); Alkaline Phosphatase 45 U/L (40-110); Anion Gap 15 mmol/L (10-20); BUN (Urea Nitrogen) 36 mg/dL (8.4-25.7); Bilirubin, Total 0.5 mg/dL (0.2-1.2); Calc. Creatinine Clearance 0 mL/min (70-130); Calcium 8.8 mg/dL (7.8-10.44); Carbon Dioxide 16 mmol/L (23-31); Chloride 111 mmol/L (98-107); Estimated GFR 71; Globulin 3.7 g/dL (2.4-3.5); Glucose 115 mg/dL (83-110); Potassium 4.1 mmol/L (3.5-5.1); Protein, Total 6.4 g/dL (5.8-8.1); Sodium 138 mmol/L (136-145)
[2023-12-21 16:58] LABS: Anisocytosis SLIGHT = 6-15 cells HPF (0-5); Band 60 % (5-11); Burr Cells SLIGHT = 2-5 cells HPF (0-1); Large Platelets 6.7 % (0-5); Lymphocytes 4 % (21-51); Metamyelocyte 4 % (0-0); Monocytes 9 % (0-10); Neutrophil 24 % (42-75); Ovalocytes SLIGHT = 2-5 cells HPF (0-1); Platelet Adequacy Comment Platelets Normal; Polychromasia SLIGHT = 2-3 cells HPF (0-2); Reflex for Review?? YES; Schistocytes SLIGHT = 2-5 cells HPF (0-1)
[2023-12-21 17:30] LABS: Bacteria/HPF 2+ HPF (None Seen); Bilirubin 1+ (Negative); Blood, Urine 2+ (Negative); CAUTI Indications for Culture Alt mental st,lethar; Clarity Turbid (Clear); Glucose, Urine (Dipstick) Normal (Negative); Ketone, Urine Negative (Negative); Leukocyte 500 Leu/uL (Negative); Nitrite 1+ (Negative); Protein, Urine (Dipstick) 70 mg/dL (Neg-Trace); RBC/HPF Greater than 50 HPF (0-3); Specific Gravity, Urine 1.025 (1.002-1.036); Squamous Epithelial 0-3 HPF (0-3); Urobilinogen 3 mg/dL (Less than 2); WBC/HPF Greater than 50 HPF (0-3); Yeast-Budding 2+ HPF (None Seen); pH, Urine 5.5 (5.0-9.0)
[2023-12-21 17:31] LABS: Urine Culture Reflex Yes Yes
[2023-12-21] MEDS ORDERED: cefTRIAXone (ROCEPHIN) 1 GM VIAL ONE (18:26)
[2023-12-21] MEDS ORDERED: Sodium Chloride 0.9% 100 ML ONE (18:26)
[2023-12-21] MEDS ORDERED: Lorazepam 1 MG TAB PO PRN (18:56)
[2023-12-21] MEDS ORDERED: Ondansetron PF 4 MG/2 ML Vial IVP PRN (18:59)
[2023-12-21] MEDS ORDERED: Loperamide HCl 2 MG CAP PO PRN (18:59)
[2023-12-21 20:59] VITALS: BMI 22.4
[2023-12-21] MEDS ORDERED: Escitalopram Oxalate 20 mg Tablet PO SCH (21:00)
[2023-12-21] MEDS ORDERED: Amlodipine 5 MG TAB PO SCH (21:00)
[2023-12-21] MEDS: QUEtiapine 25 MG TAB PO SCH (21:30)
[2023-12-21] MEDS: Acetaminophen 325 MG TAB PO PRN (21:30)
[2023-12-21] MEDS: Atorvastatin Calcium 20 MG TAB PO SCH (21:30)
[2023-12-21] MEDS: Saccharomyces boulardii 250 MG CAP PER TUBE SCH (21:31)
[2023-12-21] MEDS: Lactated Ringer's 1,000 ML IV SCH (21:31)
[2023-12-21] MEDS: Dutasteride 0.5 MG CAP PO SCH (22:27)
[2023-12-21] MEDS: Sodium Bicarb 50 MEQ/50 ML Abboject 8.4% SYRINGE IVP SCH (22:27)
[2023-12-21] MEDS: Communication Order-Pharmacy FS ONE (23:01)
[2023-12-22] MEDS: Buprenorphine 2mg/Naloxone 0.5mg per 1 FILM SL SCH (01:32)
[2023-12-22] MEDS ORDERED: Sterile Water 10 ML VIAL FS PRN (02:30)
[2023-12-22] MEDS: Ziprasidone 20 MG VIAL IM SCH (03:10)
[2023-12-22 06:17] LABS: Hematocrit 32.2 % (42.0-52.0); Hemoglobin 10.4 g/dL (14.0-18.0); Mean Corpuscular HGB CONC 32.3 g/dL (32.0-36.0); Mean Corpuscular Hemoglobin 30.2 pg (27.0-31.0); Mean Corpuscular Volume 93.6 fL (78.0-98.0); Platelet Count 336 10x3/uL (130-400); RBC Distribution Width 15.9 % (11.5-14.5); Red Blood Cell (RBC) Count 3.44 mill/uL (4.70-6.10)
[2023-12-22 06:28] LABS: Anion Gap 14 mmol/L (10-20); BUN (Urea Nitrogen) 49 mg/dL (8.4-25.7); Calc. Creatinine Clearance 44 mL/min (70-130); Calcium 9.3 mg/dL (7.8-10.44); Carbon Dioxide 21 mmol/L (23-31); Chloride 109 mmol/L (98-107); Estimated GFR 48; Glucose 116 mg/dL (83-110); Potassium 4.4 mmol/L (3.5-5.1); Sodium 140 mmol/L (136-145)
[2023-12-22] MEDS ORDERED: Pantoprazole DR 40 MG TAB PO SCH (08:00)
[2023-12-22 08:27] LABS: Band 54 % (5-11); Burr Cells MODERATE= 6-15 cells HPF (0-1); Large Platelets 2.7 % (0-5); Lymphocytes 9 % (21-51); Metamyelocyte 30 % (0-0); Monocytes 3 % (0-10); Myelocyte 4 % (0-0); Neutrophil 1 % (42-75); Platelet Adequacy Comment Platelets Normal; Polychromasia SLIGHT = 2-3 cells HPF (0-2); Schistocytes SLIGHT = 2-5 cells HPF (0-1)
[2023-12-22] MEDS ORDERED: Chlorthalidone 25 MG TAB PO SCH (09:00)
[2023-12-22 09:22] VITALS: BMI 22.4
[2023-12-22] MEDS: Folic Acid 1 MG TAB PER TUBE SCH (10:00)
[2023-12-22] MEDS: Thiamine 100 MG TAB PER TUBE SCH (10:00)
[2023-12-22] MEDS: Fidaxomicin 200 MG TAB PO SCH (10:00)
[2023-12-22] MEDS: Citalopram 20 MG TAB PO SCH (10:00)
[2023-12-22] MEDS: Tamsulosin HCl 0.4 MG CAP PO SCH (10:00)
[2023-12-22] MEDS: Aspirin 81 mg Enteric Coated Tablet PO SCH (10:00)
[2023-12-22] MEDS: Cholecalciferol 1,000 UNITS (25 MCG) TAB PO SCH (10:00)
[2023-12-22] MEDS: Morphine 2 MG/ML VIAL SLOW IVP SCH (11:16)
[2023-12-22] MEDS: Sodium Chloride 0.9% 250 ML IV SCH (12:45)
[2023-12-22] MEDS: Albumin 25% 25 GM (100 mL) BOT IVPB SCH ×2 (14:25→20:25)
[2023-12-22] MEDS: Lactated Ringer's 1,000 ML IV SCH ×2 (15:12→15:13)
[2023-12-22] MEDS: Lansoprazole 30 MG/10 ML UDCUP PER TUBE SCH (15:13)
[2023-12-22] MEDS: Fosfomycin 3 GM/Packet PO SCH (15:13)
[2023-12-22] MEDS: Divalproex Sodium 125 mg Sprinkle Capsule PO SCH (20:59)
[2023-12-23 02:29] VITALS: BP 80/56
[2023-12-23 02:31] LABS: Hematocrit 36.5 % (42.0-52.0); Hemoglobin 11.7 g/dL (14.0-18.0); Mean Corpuscular HGB CONC 32.1 g/dL (32.0-36.0); Mean Corpuscular Hemoglobin 29.9 pg (27.0-31.0); Mean Corpuscular Volume 93.4 fL (78.0-98.0); Mean Platelet Volume 11.9 fL (7.4-10.4); Platelet Count 350 10x3/uL (130-400); RBC Distribution Width 16.3 % (11.5-14.5); Red Blood Cell (RBC) Count 3.91 mill/uL (4.70-6.10)
[2023-12-23 02:48] LABS: ALT (SGPT) 11 U/L (8-55); AST (SGOT) 37 U/L (5-34); Albumin 2.6 g/dL (3.4-4.8); Alkaline Phosphatase 95 U/L (40-110); Anion Gap 23 mmol/L (10-20); BUN (Urea Nitrogen) 66 mg/dL (8.4-25.7); Bilirubin, Total 0.7 mg/dL (0.2-1.2); Calc. Creatinine Clearance 27 mL/min (70-130); Calcium 9.6 mg/dL (7.8-10.44); Carbon Dioxide 10 mmol/L (23-31); Chloride 112 mmol/L (98-107); Estimated GFR 27; Globulin 2.9 g/dL (2.4-3.5); Glucose 96 mg/dL (83-110); Magnesium 3.3 mg/dL (1.6-2.6); Potassium 5.8 mmol/L (3.5-5.1); Protein, Total 5.5 g/dL (5.8-8.1); Sodium 139 mmol/L (136-145)
[2023-12-23 02:52] LABS: Anisocytosis SLIGHT = 6-15 cells HPF (0-5); Band 35 % (5-11); Burr Cells MODERATE= 6-15 cells HPF (0-1); Dohle Bodies SLIGHT; Lymphocytes 5 % (21-51); Macrocytosis SLIGHT = 6-15 cells HPF (0-5); Metamyelocyte 13 % (0-0); Monocytes 4 % (0-10); Myelocyte 3 % (0-0); Neutrophil 41 % (42-75); Nucleated RBC (Manual Ct) 3 % (0); Ovalocytes SLIGHT = 2-5 cells HPF (0-1); Platelet Adequacy Comment Platelets Normal; Poikilocytosis MARKED = >30 cells HPF (0-5); Polychromasia SLIGHT = 2-3 cells HPF (0-2); Toxic Granulation MODERATE; Vacuoles SLIGHT
[2023-12-23] MEDS: Sodium Bicarbonate 150 MEQ in Sterile Water 1,000 ML IV SCH (03:10)
[2023-12-23 03:13] LABS: Actual Bicarbonate (HCO3v) 12.9 mEq/L (22-28); Base Excess -11.8 mEq/L (-2.0 to +3.0); pH (venous) 7.306 (7.32-7.43)
[2023-12-23 03:14] LABS: Calcium, Ionized (venous) 1.15 mmol/L (1.16-1.32); Chloride (VBG) 109 mmol/L (98-106); Hematocrit-VBG 36 % (42.0-52.0); Hemoglobin (Hb) 12.4 g/dL (12.6-17.4); Potassium (VBG) 5.04 mmol/L (3.70-5.30); Sodium 140 mmol/L (133-146)
[2023-12-23] MEDS: Sodium Bicarb 50 MEQ/50 ML Abboject 8.4% SYRINGE ONE ×2 (03:15→08:35)
[2023-12-23] MEDS: Sodium Bicarb 50 MEQ/50 ML Abboject 8.4% SYRINGE IVP SCH ×2 (03:15→08:15)
[2023-12-23] MEDS: NOREPINEPHRINE 8 MG/250 ML-D5W 250 ML ONE (03:20)
[2023-12-23] MEDS: Calcium Gluc 4.6 MEQ/10 ML (100 MG/ML) SLOW IVP SCH (03:40)
[2023-12-23] MEDS: Sodium Chloride 0.9% 1,000 ML IV SCH (03:50)
[2023-12-23] MEDS ORDERED: Vasopressin In 0.9 % NaCl 40 UNIT in Premix 1 BAG IV SCH (04:30)
[2023-12-23] MEDS ORDERED: Vasopressin 20 UNITS in Sodium Chloride 0.9% 50 ML IV SCH (04:30)
[2023-12-23] MEDS ORDERED: Phenylephrine 40 MG/NS 250 ML 250 ML IVPB SCH (05:15)
[2023-12-23 06:30] LABS: Lactic Acid 10.76 mmol/L (0.5-2.2)
[2023-12-23] MEDS: Sodium Chloride 0.9% 500 ML IV SCH (08:10)
[2023-12-23 08:48] LABS: ALT (SGPT) 17 U/L (8-55); AST (SGOT) 53 U/L (5-34); Albumin 2.5 g/dL (3.4-4.8); Alkaline Phosphatase 120 U/L (40-110); Anion Gap 28 mmol/L (10-20); BUN (Urea Nitrogen) 70 mg/dL (8.4-25.7); Bilirubin, Total 0.8 mg/dL (0.2-1.2); Calc. Creatinine Clearance 24 mL/min (70-130); Calcium 9.6 mg/dL (7.8-10.44); Carbon Dioxide 12 mmol/L (23-31); Chloride 108 mmol/L (98-107); Estimated GFR 24; Globulin 2.6 g/dL (2.4-3.5); Glucose 127 mg/dL (83-110); Potassium 5.2 mmol/L (3.5-5.1); Protein, Total 5.1 g/dL (5.8-8.1); Sodium 143 mmol/L (136-145)
[2023-12-23 08:51] LABS: Lactic Acid 14.98 mmol/L (0.5-2.2)
[2023-12-23] MEDS: Morphine 2 MG/ML VIAL SLOW IVP PRN ×2 (08:58→10:34)
[2023-12-23] MEDS ORDERED: metroNIDAZOLE 500 MG in Premix 1 BAG IVPB SCH (09:00)
[2023-12-23] MEDS ORDERED: Cefepime 1 GM in Sodium Chloride 0.9% 100 ML IVPB SCH (09:00)
[2023-12-23] MEDS: NOREPINEPHRINE 8 MG/250 ML-D5W 250 ML IVPB SCH (09:47)
[2023-12-23] MEDS: Lorazepam 2 MG/ML VIAL SLOW IVP PRN (10:34)
[2023-12-23 11:01] VITALS: TEMP 97.6
[2023-12-23] MEDS ORDERED: Lorazepam 2 MG/ML VIAL SLOW IVP PRN (11:04)
[2023-12-23] MEDS ORDERED: Morphine 2 MG/ML VIAL SLOW IVP PRN (11:04)
[2023-12-24] MEDS ORDERED: Fosfomycin 3 GM/Packet PO SCH (09:00)
== END 2023-12-23 13:28 | disposition expired | DRG 698 ==
LOC: ERS 13:52 → T4-A 19:01 → CCU 12-23 03:10
PROVIDERS: ADMIT Hospitalist; ATTEND Internal Medicine
PROC: 30233J1 Transfusion of Nonautologous Serum Albumin into Peripheral Vein, Percutaneous Approach (ICD-10-PCS; 2023-12-22)
PROC: 06HY33Z Insertion of Infusion Device into Lower Vein, Percutaneous Approach (ICD-10-PCS; principal; 2023-12-23)
PROC: 0DH67UZ Insertion of Feeding Device into Stomach, Via Natural or Artificial Opening (ICD-10-PCS; 2023-12-23)
PROC: 3E033XZ Introduction of Vasopressor into Peripheral Vein, Percutaneous Approach (ICD-10-PCS; 2023-12-23)
PROC: 3E043XZ Introduction of Vasopressor into Central Vein, Percutaneous Approach (ICD-10-PCS; 2023-12-23)
PROC: 3E03329 Introduction of Other Anti-infective into Peripheral Vein, Percutaneous Approach (ICD-10-PCS; 2023-12-23)
DX: T83.511A Infection and inflammatory reaction due to indwelling urethral catheter, initial encounter (principal); A41.9 Sepsis, unspecified organism; G93.41 Metabolic encephalopathy; R65.21 Severe sepsis with septic shock; J96.00 Acute respiratory failure, unspecified whether with hypoxia or hypercapnia; E87.20 Acidosis, unspecified; E87.1 Hypo-osmolality and hyponatremia; N17.9 Acute kidney failure, unspecified; F03.94 Unspecified dementia, unspecified severity, with anxiety; F03.93 Unspecified dementia, unspecified severity, with mood disturbance; A04.71 Enterocolitis due to Clostridium difficile, recurrent; Z66 Do not resuscitate; Z51.5 Encounter for palliative care; N39.0 Urinary tract infection, site not specified; N40.1 Benign prostatic hyperplasia with lower urinary tract symptoms; I25.10 Atherosclerotic heart disease of native coronary artery without angina pectoris; M54.50 Low back pain, unspecified; G89.29 Other chronic pain; S51.002A Unspecified open wound of left elbow, initial encounter; S61.501A Unspecified open wound of right wrist, initial encounter; N18.9 Chronic kidney disease, unspecified; I12.9 Hypertensive chronic kidney disease with stage 1 through stage 4 chronic kidney disease, or unspecified chronic kidney disease; B95.2 Enterococcus as the cause of diseases classified elsewhere; K59.09 Other constipation; B96.5 Pseudomonas (aeruginosa) (mallei) (pseudomallei) as the cause of diseases classified elsewhere; E86.9 Volume depletion, unspecified; E87.5 Hyperkalemia; E78.5 Hyperlipidemia, unspecified; Z88.1 Allergy status to other antibiotic agents; Z88.8 Allergy status to other drugs, medicaments and biological substances; Z90.49 Acquired absence of other specified parts of digestive tract; Z87.442 Personal history of urinary calculi; Z79.2 Long term (current) use of antibiotics; Z79.899 Other long term (current) drug therapy; Z98.890 Other specified postprocedural states; Z98.1 Arthrodesis status; Z95.1 Presence of aortocoronary bypass graft; Z87.891 Personal history of nicotine dependence; Z79.82 Long term (current) use of aspirin; Y84.6 Urinary catheterization as the cause of abnormal reaction of the patient, or of later complication, without mention of misadventure at the time of the procedure; Z78.1 Physical restraint status
CPT/HCPCS: 36415; 70450; 71045; 80048; 80053; 81001; 82805; 83605; 83630; 83735; 83880; 84145; 84484; 85025; 85060; 87040; 87077; 87086; 87186; 87324; 87328; 87329; 87449; 93005; 96360; 96361; 97139; A4217; J0572; J0612; J0696; J2060; J2272; J3486; J7030; J7120; P9047